=== PATIENT | female | born 1965 | race African-American/Black ===

== ENCOUNTER 2019-07-17 08:17 | Inpatient (IN) ==
--- NOTE | 2019-07-14 09:43 | EKG Report ---
Test Performed on : 07/14/2019 08:27:35 AM Test Reason : pat Blood Pressure : / mmHG Vent. Rate : 079 BPM Atrial Rate : 079 BPM P-R Int : 184 ms QRS Dur : 072 ms QT Int : 382 ms P-R-T Axes : 070 011 012 degrees QTc Int : 438 ms Normal sinus rhythm. Low voltage QRS Borderline ECG When compared with ECG of 03-JUL-2018 15:24, QRS voltage has decreased Unconfirmed Result
[2019-07-17] MEDS ORDERED: REGLAN ONE (08:33)
[2019-07-17] MEDS ORDERED: LR 1,000 ML ONE (08:33)
[2019-07-17] MEDS ORDERED: PEPCID ONE (08:33)
[2019-07-17] MEDS ORDERED: KEFZOL 1 GM/D5W 2 GM/100 ML IVPB ONE (08:33)
[2019-07-17] MEDS ORDERED: XYLOCAINE-MPF 2% ONE (08:48)
[2019-07-17] MEDS ORDERED: ZOFRAN ONE (08:48)
[2019-07-17] MEDS ORDERED: ROBINUL ONE (08:48)
[2019-07-17] MEDS ORDERED: DECADRON ONE (08:48)
[2019-07-17] MEDS ORDERED: DIPRIVAN 1% ONE (08:49)
[2019-07-17] MEDS ORDERED: FENTANYL ONE (09:14)
[2019-07-17] MEDS: ZOSYN 3.375 GM in NS 50 ML IV ONE ×2 (10:30→12:42)
[2019-07-17] MEDS ORDERED: ZOFRAN IV PRN (11:00)
[2019-07-17] MEDS ORDERED: LABETALOL IV PRN (11:00)
[2019-07-17] MEDS ORDERED: VANCOMYCIN IV PER PHARMACY MISC SCH (11:00)
[2019-07-17] MEDS ORDERED: DITROPAN PO PRN (11:00)
[2019-07-17] MEDS ORDERED: NORCO-7.5 PO PRN (11:00)
--- NOTE | 2019-07-17 11:00 | Diag Imaging Result Doc PS360 ---
EXAM: RETROGRADES 2 OR 3 FILMS 07/17/2019 HISTORY: BILAT RETROGRADE, BILAT STENT PLACEMENT, RT STENT REMOVAL TECHNIQUE: 34 images, 14.3 mGy, 38 seconds fluoroscopy time. COMMENT: There is a right ureteral stent. This was removed. Contrast was injected demonstrating a somewhat inhomogeneous renal pelvis and infundibula with distended upper pole calyces. The stent was removed placed with a stent with its upper portion in the lower pole infundibulum. Subsequently a catheter was placed in the distal left ureter and contrast was injected demonstrating some caliectasis in the lower pole more so than in the upper pole. A stent was subsequently placed on the left. IMPRESSION: Obstructive changes in the right renal collecting system. Right ureteral stent replaced. Placement of left ureteral stent by Dr. Reyes. Electronically signed by Hansel Posada 07/17/2019 10:58 AM
[2019-07-17] MEDS ORDERED: D5 1/2 NS 1,000 ML ONE (11:02)
[2019-07-17] MEDS: D5 1/2 NS 1,000 ML IV SCH (12:42)
[2019-07-17] MEDS ORDERED: VANCOMYCIN 1,700 MG in NS 250 ML IV ONE (14:00)
--- NOTE | 2019-07-17 17:01 | HISTORY AND PHYSICAL ---
PRIMARY CARE PROVIDER: Dr. Kali Foster. ONCOLOGIST: Dr. Marily Allen. UROLOGIST: Dr. Vladimir Reyes. CHIEF COMPLAINT: Admission for stent removal on bilateral stent replacement. HISTORY OF PRESENT ILLNESS: Ms Sanz is a 53-year-old female with a past medical history of cervical cancer, currently undergoing immunotherapy treatment with Dr. Marily Allen, hypertension, depression, anxiety, urethral stent placed back 15 months ago and had it replaced today by Dr. Reyes, for which the hospitalist was called for admission. There was a large amount of pus. 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 She will continue on IV antibiotics, IV fluids, pain regimen. Her old stent was replaced as well as bilateral stenting. PAST MEDICAL HISTORY: 1. Cervical cancer, undergoing treatment with immunotherapy with Dr. Marily Allen. 2. Hypertension. 3. Anxiety and depression. 4. Chronic kidney disease. 5. Iron deficiency anemia. 6. Tobacco dependence. 7. Vaginal bladder fistula. PAST SURGICAL HISTORY: 1. Status post right urethral stent with replacement. 2. Placement of a left urethral stent. 3. Right Port-A-Cath placement. SOCIAL HISTORY: Current smoker. She wears glasses. Family members at bedside. No alcohol or illicit drug use. FAMILY HISTORY: Of heart disease. There is cancer. PHYSICAL EXAMINATION: VITAL SIGNS: Temperature is 97.6 degrees, heart rate 58, respirations 16, blood pressure 144/58, O2 is 100% on room air. GENERAL: Patient is a 53-year-old female who is lying in the bed in no acute distress. Family member at bedside. HEENT: Atraumatic, normocephalic. PERRLA. NECK: Supple, trachea midline. CARDIOVASCULAR: S1, S2 appreciated. No murmurs, gallops, rubs noted. RESPIRATORY: Lung sounds clear bilaterally. GASTROINTESTINAL: Soft, nontender nondistended. Quiet bowel sounds 4 quadrants. EXTREMITIES: Lower extremities negative for edema. SKIN: Appears to be warm, dry, and intact. NEUROLOGIC: No focal deficits noted. LABORATORY DATA: No current laboratory data. DIAGNOSTIC DATA: Retrograde pyelogram shows obstructive changes in the right renal collecting system, right urethral stent replaced, placement of left urethral stent. EKG normal sinus rhythm at 79 beats per minute. ASSESSMENT AND PLAN: 1. Status post bilateral stent placement secondary to obstructive changes in the right renal collecting system. Copious amounts of pus found per Dr. Reyes's report. She will continue on IV antibiotics, IV fluids. Recheck her laboratory data in the a.m. Continue with pain regimen. The vaginal fistula known. 2. Cervical cancer. We will do a courtesy consult for Dr. Marily Allen. Patient is still undergoing immunotherapy treatment. 3. Hypertension. We will continue her home medications. 4. Anxiety and depression. Continue home medications. 5. Further recommendations to follow physician evaluation, laboratory and diagnostic data. Dictated by EDIS Kolb for Jose Manuel Peterson MD Addendum: Patient seen and examined by myself. Agree with FUSE MAKER note. It reflects my assessment and plan. Patient is being admitted to hospital for stent place removal. Patient has cervical cancer. We were consulted for medical management. Will start broad spectrum antibiotics and check CBC daily. cc: MD Vladimir Alex MD Heather Shah, MD Kenneth E. Mashburn, MD MTDD
--- NOTE | 2019-07-17 17:48 | OPERATIVE NOTE ---
PROCEDURE DATE: 07/17/2019 PREOPERATIVE DIAGNOSES: 1. Metastatic cervical cancer. 2. Right hydronephrosis. 3. Vesicovaginal fistula. POSTOPERATIVE DIAGNOSES: 1. Metastatic cervical cancer. 2. Right hydronephrosis. 3. Vesicovaginal fistula. 4. Obstructed right uropathy. PROCEDURE PERFORMED: 1. Cystoscopy. 2. Bilateral retrograde pyelograms. 3. Bilateral ureteral stent placement. 4. Cystolitholapaxy <2 cm. SURGEON: Vladimir Reyes MD PLANER CHAIN OFFBEARER: None. COMPLICATIONS: None. BLOOD LOSS: Minimal. DRAINS: 1. Right 8 x 22 cm ureteral stent. 2. Left 6 x 22 left ureteral stent. SPECIMENS REMOVED: 1. Right ureteral stent. 2. Urine culture. 3. Bladder stones. ANESTHESIA: LMA. INDICATION FOR PROCEDURE: Ms. Sanz is a 53-year-old, who was diagnosed with cervical cancer approximately 15 months ago. The patient had indwelling ureteral stent placed by doctors in [place] on the right side and underwent a left percutaneous nephrostolithotomy. The left-sided nephrostomy tube was then removed, but patient has kept her indwelling right ureteral stent which has not been exchanged since April 2018. She underwent chemotherapy and radiation and has subsequently developed a vesicovaginal fistula. The patient presented to the Urology office due to obstruction with right hydronephrosis. The patient denied any fevers, chills, hematuria, or dysuria. The patient was examined and had palpable vesicovaginal fistula. An x-ray showed the stent was in good position with coil within the right kidney as well as coil within the bladder. She had recent CT scan that showed worsening lymphadenopathy and is being seen both by Dr. Allen and at [facility]. I talked with the patient, and I recommended exchange of her right ureteral stent due to worsening lymphadenopathy, as well as a left retrograde pyelogram to assess for obstruction. Risks, benefits, and alternatives of procedure were discussed with the patient, and the patient elected to proceed. DESCRIPTION OF PROCEDURE: After informed consent was obtained, the patient was brought to the operating room and placed on the operating table in supine position. The patient received Ancef for preoperative antibiotics and underwent LMA placement. Preoperative time-out was then performed, with all parties in agreement, including Anesthesia, Surgical, and Nursing staff. At which point I inserted a 21-Kazakh cystourethroscope through the urethra. The patient had a narrow urethra, but was accommodating to the scope and was able to advance all the way into the bladder. Once in the bladder, the stent was seen extruding from the right ureteral orifice. A large amount of calcification was seen on the coil of the stent, as well as ingrowth of tissue. A large vesicovaginal fistula was seen, which rapidly drained the bladder when irrigation was turned off. 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 The left ureteral orifice was very difficult to visualize in the base of the bladder and actually was in the vagina itself within the vesicovaginal fistula. A ZIPwire was then passed through the scope and into the right ureteral orifice and went all the way up into the kidney. This was left in place and the cystourethroscope was removed and then reinserted with the rigid grasper which was used to grasp the right ureteral stent and broke all of the calcified stone off of the stent, and I was able to grasp the stent and completely remove it. This removed easily with no large stone debris seen on the proximal coil. Once this was removed, retrograde pyelogram was then performed in the right ureteral orifice, which outlined a hydronephrotic system with blown-out calices. Wire was left in place and then backloaded the cystourethroscope and a 8 x 22 cm right ureteral stent was advanced with a large amount of purulence that returned. This drained for almost 5 minutes of straight purulent material which was obtained and sent for a urine culture. Once this was performed, an open-ended catheter was then advanced into the left ureteral orifice and a wire was advanced, which actually allowed the ureteral orifice to be pulled up into the bladder itself. I advanced the open-ended catheter into the distal ureter and a retrograde pyelogram was performed, which showed no evidence of hydronephrosis. The decision was made to place a left ureteral stent just due to the location of the ureter in the base of the bladder and a concern regarding continued incontinence. I was able to obtain a 6 x 22 stent and advance it over the ZIPwire up into the collecting system with good coil in the kidney and endoscopically visualized in the bladder. The patient's bladder was drained completely; however, no significant sediment was seen from the left side, and the right side stopped draining its purulent output. All of the stone debris was retrieved from the bladder and sent as a bladder stone specimen. The patient's bladder was left decompressed. She was awoken and was taken to Recovery in stable condition. PLAN: The patient will be admitted overnight to the hospitalist service for IV antibiotics and will follow up results of her urine culture. cc: MD Jose Manuel Casarez MD MTDD
[2019-07-17] MEDS: ZOSYN 3.375 GM in NS 50 ML IV SCH ×2 (18:42→23:26)
[2019-07-17] MEDS: NEURONTIN PO SCH (20:58)
[2019-07-17] MEDS: COLACE PO SCH (20:58)
[2019-07-17] MEDS: CATAPRES PO SCH (20:58)
[2019-07-17] MEDS: PERIDEX MT SCH (20:58)
[2019-07-17] MEDS ORDERED: AMBIEN PO SCH (21:00)
[2019-07-18] MEDS: D5 1/2 NS 1,000 ML IV SCH (02:03)
[2019-07-18] MEDS: ZOSYN 3.375 GM in NS 50 ML IV SCH ×2 (04:29→11:51)
[2019-07-18 06:46] LABS: HEMATOCRIT 30.5 % (37.0-47.0); HEMOGLOBIN 9.4 g/dL (12.0-16.0); MCH 26.7 PG (27-31); MCHC 30.8 g/dL (33-37); MCV 86.6 FL (81-99); MPV 10.3 FL (7.4-10.4); RBC 3.52 XMIL (4.2-5.4); RDW 17.5 % (11.5-14.5); WBC 8.8 X1000 (4.8-10.8)
[2019-07-18 07:17] LABS: CALCIUM 9.8 mg/dL (8.8-10.2); CREATININE 1.9 mg/dL (0.5-0.9); POTASSIUM 4.4 mmol/L (3.5-5.1)
[2019-07-18] MEDS ORDERED: ISOPTIN SR PO SCH (09:00)
[2019-07-18] MEDS ORDERED: XANAX PO SCH (09:00)
[2019-07-18] MEDS ORDERED: VITAMIN B-12 PO SCH (09:00)
[2019-07-18] MEDS ORDERED: FERROUS SULFATE PO SCH (09:00)
[2019-07-18] MEDS ORDERED: PAXIL PO SCH (09:00)
[2019-07-18] MEDS ORDERED: XARELTO PO SCH ×2 (09:00→10:00)
[2019-07-18] MEDS: NEURONTIN PO SCH (09:44)
[2019-07-18] MEDS: CATAPRES PO SCH (09:45)
[2019-07-18] MEDS: COLACE PO SCH (09:46)
[2019-07-18] MEDS: PERIDEX MT SCH (09:48)
[2019-07-18 13:46] VITALS: BP 150/62
--- NOTE | 2019-07-18 14:17 | PROGRESS NOTE ---
DATE: 07/18/2019 SUBJECTIVE: Patient reports feeling fine. No abdominal pain. No nausea or vomiting. OBJECTIVE: Vital Signs: Temperature 97.7, heart rate 60, respiratory rate 20, blood pressure 151/76, O2 saturation 98% on room air. General: This is a chronically ill-appearing, 53-year- old, -English female, lying in bed in no acute distress. Cardiovascular: S1, S2 heard. No murmurs, gallops, or rubs. Regular rate and rhythm. Respiratory: Clear bilaterally to auscultation. No work of breathing or using accessory muscles. Abdomen: Soft, nontender to palpation. Bowel sounds present. No organomegaly. Extremities: No clubbing, cyanosis, or edema. Peripheral pulses present in both legs. Neurological: Patient alert and oriented x3. Moves 4 extremities. LABORATORY DATA: Reviewed. ASSESSMENT: 1. Status post bilateral stent placement secondary to obstructive changes in the right renal collecting system. 2. Cervical cancer. 3. Hypertension. 4. Anxiety and depression. PLAN: At this point, patient is stable. I have talked with Dr. Reyes and he is planning to send this patient home with oral antibiotics. The patient is going to be seen by Dr. Marily Allen in the office for followup with the cervical cancer. At this point, we are going to sign off. We do not need to make any changes to her current medications regarding hypertension, anxiety, and depression. We appreciate the opportunity to participate in the care of this patient. cc: Jose Manuel Peterson MD
[2019-07-19] MEDS ORDERED: VANCOMYCIN 1,500 MG in NS 250 ML IV SCH (14:00)
--- NOTE | 2019-07-19 17:14 | HEMO/ONC CONSULTATION ---
DATE: 07/18/2019 REQUESTING PHYSICIAN: Patient seen initial consultation at request of Dr. Reyes. REASON FOR CONSULTATION: Cervical cancer. HPI: Ms Laura Sanz is an unfortunate 53-year-old woman who is well known to be in clinic for her history of recurrent cervical cancer. She has most recently been on Keytruda immunotherapy for her recurrent relapsed cervical cancer. She is tolerating treatment well and had recent scans unfortunately on July 03 that showed progression of disease in the retroperitoneum. In the interim, she was seeing Dr. Reyes for stent exchanges. She had not had any exchange of her stent in over a year. She underwent stent exchange on the day of admission with significant amount of purulent fluid removed at the time of this stent exchange and there appeared to be some blockage of the stent. She has been hospitalized overnight for antibiotics and monitoring. She has been afebrile during her hospitalization. PAST MEDICAL HISTORY: Significant for recurrent cervical cancer, hypertension, hyperlipidemia. PAST SURGICAL HISTORY: Is notable for ankle fracture repair 2004, tubal ligation 1991, hysterectomy at diagnosis. ALLERGIES: None. FAMILY MEDICAL HISTORY: Dad had prostate cancer, heart disease. Mom had heart disease. Two sisters with diabetes, heart disease, hypertension. Children are 38 and 29 and healthy. A maternal uncle had prostate cancer. Paternal aunt had lymphoma. SOCIAL HISTORY: Patient quit smoking but previously smoked 4 cigarettes a day for 20 years. No alcohol or illicit drug use. GYNECOLOGIC HISTORY: 2, para 2, status post hysterectomy 2016. ECOG performance status is a 1. Pain score is a 2. Continue current management. PHYSICAL EXAM: General: This is chronically ill-appearing, overweight woman in no acute distress. She is unaccompanied in the hospital room during consultation today. Vital signs: Temperature 97.7 degrees, pulse 60, respiratory rate 20, blood pressure 151/76, O2 saturation 98% on room air. Eyes: Sclerae anicteric. Conjunctiva pale. Cardiovascular: Regular rate and rhythm. Normal S1, S2. No murmurs, rubs, or gallops. Pulmonary: Lungs clear to auscultation bilaterally without wheezes, rales or rhonchi. GI: Abdomen soft, nontender, nondistended with normoactive bowel sounds. Peripheral IV is in place. Extremities: Trace bilateral pretibial edema. Neuro: Is alert and oriented x3. Gait not assessed as patient is in a hospital bed at the time of consultation. LABS: White count 8.8, hemoglobin 9.4, platelet count 438,000, creatinine 1.9. Microbiology. Cultures are pending. ASSESSMENT AND PLAN: 1. Cervical cancer: She is on palliative therapy with Keytruda, is on the wait list for clinical trial at [facility]. She has had what appears to be progression of disease with retroperitoneal adenopathy on her recent PET scan which was discussed with the patient today. She will be taken off of Keytruda and we will discuss alternative therapy options at her return visit. I will touch base with [facility] to determine her candidacy for clinical trial as well. 2. Hydronephrosis: Likely related to blocked ureteral stent versus retroperitoneal adenopathy. Status post stent exchange. We will recheck her kidney function at her lab check early next week. She will continue with adequate oral hydration. Continue to monitor. 3. Anemia: Multifactorial. Partially treatment induced. We will monitor and replete her vitamin deficiencies as indicated. Consider growth factor for treatment induced anemia pending her transition to alternative systemic treatment. cc: MD Jose Manuel Casarez MD Dr. Kirby
== END 2019-07-18 13:55 | disposition home health service (06) | DRG 660 ==
LOC: 4N 08:17 → PAT 08:17 → OPS 08:17 → OBSVTOIN 09:42 → 4N 11:05
PROVIDERS: ADMIT Internal Medicine; ATTEND Urology

== ENCOUNTER 2019-08-23 21:30 | Inpatient (IN) ==
--- NOTE | 2019-08-23 21:57 | Diag Imaging Result Doc PS360 ---
EXAM: CHEST-1 VIEW HISTORY: possible sepsis TECHNIQUE: Single view COMPARISON: 10/04/2018 FINDINGS: The lungs are well expanded. The heart is not enlarged. There is a right jugular portacatheter. The vessels are not distended. Small infiltrates in the left base. Small left effusion. IMPRESSION: Small left basilar infiltrate Electronically signed by Reynold Carpenter 08/23/2019 9:55 PM
[2019-08-23] MEDS ORDERED: NS 1,000 ML IV ONE (22:19)
[2019-08-23] MEDS ORDERED: VANCOMYCIN 750 MG in NS 150 ML IV ONE (22:20)
[2019-08-23] MEDS ORDERED: ZOSYN 4.5 GM in NS 100 ML IV ONE (22:20)
[2019-08-23 23:07] LABS: BASO# 0.02 X1000 (0.0-0.2); BASO% 0.1 % (0.0-0.8); HEMATOCRIT 22.2 % (37.0-47.0); HEMOGLOBIN 6.9 g/dL (12.0-16.0); IMM GRAN# 0.21 X1000 (0.0-0.04); IMM GRAN% 1.1 % (0.0-0.5); LYMPH% 3.6 % (20.5-51.1); MCH 26.3 PG (27-31); MCHC 31.1 g/dL (33-37); MCV 84.7 FL (81-99); MONO# 1.17 X1000 (0.11-0.59); MONO% 6.1 % (1.7-9.3); MPV 10.5 FL (7.4-10.4); NEUT# 17.17 X1000 (1.4-6.5); NEUT% 89.1 % (42.2-75.2); PLT 406 X1000 (130-400); RBC 2.62 XMIL (4.2-5.4); RDW 17.7 % (11.5-14.5); WBC 19.27 X1000 (4.8-10.8)
[2019-08-23 23:09] LABS: INR 1.24; PROTIME 15.8 Seconds (11.0-16.0)
[2019-08-23 23:10] LABS: PTT 42.7 Seconds (22.3-41.8)
[2019-08-23 23:26] LABS: ALB/GLOB RATIO 0.8; ALBUMIN 3.1 g/dL (3.5-5.0); CALCIUM 11.8 mg/dL (8.8-10.2); CREATININE 2.7 mg/dL (0.5-0.9); POTASSIUM 4.1 mmol/L (3.5-5.1); TOTAL BILIRUBIN 0.37 mg/dL (0.20-1.00)
[2019-08-23 23:48] LABS: CK INDEX 0.3 (0.0-2.5); CK-MB 1.19 ng/mL (0.0-5.0)
--- NOTE | 2019-08-23 23:50 | PROVIDER DOCUMENTATION ---
This chart was entered by Arlyn Jamil Scribe, acting as scribe for Tyler Conner MD. HPI-General Adult - General Chief Complaint: SEPSIS ALERT - D Stated Complaint: possible uti/ altered Time Seen by Provider: 08/23/19 21:40 Source: patient, family, EMS Allergies/Adverse Reactions: Patient Allergies Allergy/AdvReac Type Severity Reaction Status Date / Time No Known Allergies Allergy Verified 02/15/15 13:51 Home Medications: Home Medication List Medication Instructions Recorded Confirmed Last Taken Type Clonidine [Catapres] 1 tab PO BID 02/15/15 07/17/19 07/17/19 06:00 History Verapamil HCl [Verapamil ER] 1 tab PO DAILY 02/15/15 07/17/19 07/17/19 06:00 History Zolpidem [Ambien] 10 mg PO QHS 06/17/18 07/17/19 07/16/19 21:00 History Alprazolam 0.5 mg PO DAILY 08/13/18 07/17/19 07/17/19 06:00 History Gabapentin 600 mg PO BID 08/13/18 07/17/19 07/16/19 20:00 History Paroxetine [Paxil] 10 mg PO DAILY 08/13/18 07/17/19 07/16/19 08:00 History Cyanocobalamin (Vitamin B-12) 1,000 mcg PO DAILY 07/14/19 07/17/19 07/16/19 08:00 History [Vitamin B-12] Ferrous Sulfate [Iron] 325 mg PO DAILY 07/14/19 07/17/19 07/16/19 08:00 History Rivaroxaban [Xarelto] 15 mg PO BID 07/14/19 07/17/19 07/16/19 08:00 History CefUROXIME [Ceftin] 250 mg PO BID #14 tab 07/18/19 Unknown Rx Hydrocodone/Acetaminophen [[place] 1 ea PO Q6H PRN #10 tab 07/18/19 Unknown Rx 5-325 Tablet] - History of Present Illness -Gen Adult Nature of Presenting Problems: 53 y/o female presents to ED with increased AMS onset 2 days ago. Family of pt reports hx cervical cancer. Pt is currently on chemo and has a port. EMS states pt was febrile, tachycardia, and tachypneic en route to ED. Family of pt reports she has been lying in bed for the past 2 days. Pt is alert and oriented x 2. Location of Pain/Injury: reports: none Pain Radiation: reports: no radiation Quality of Pain: reports: none Severity: reports: moderate, severe Onset/Duration: reports: 2 days ago Timing: reports: still present Context/Activities at Onset: reports: none Modifying Factors: improves with: nothing Associated Symptoms: reports: other (AMS) Similar Symptoms Previously?: No Recently seen or treated by another doctor?: No Review of Systems - Adult - REVIEW OF SYSTEMS - ADULT ROS:: ROS per family Constitutional: reports: other (AMS). denies: chills, fever Eyes: reports: no symptoms reported Ears, Nose, Mouth & Throat: reports: no symptoms reported Cardiovascular: reports: no symptoms reported Respiratory: reports: no symptoms reported Gastrointestinal: reports: no symptoms reported Genitourinary: reports: no symptoms reported Musculoskeletal: reports: no symptoms reported Integumentary: reports: no symptoms reported Neurological: reports: no symptoms reported Psychiatric: reports: no symptoms reported Endocrine: reports: no symptoms reported Hematologic/Lymphatic: reports: no symptoms reported Allergic/Immunologic: reports: no symptoms reported All Other Systems: Reviewed and Negative Past History - Adult - PAST MEDICAL HISTORY-ADULT Review of Records: reports: Old Records Reviewed, Nursing Assessment Review, Medications Reviewed Major Childhood Illnesses: reports: denies history Cardiovascular: reports: HTN, hyperlipidemia Respiratory: reports: denies history Gastrointestinal: reports: denies history Obstetrical/Gynecological: reports: other (cervical cancer) Genitourinary: reports: other (kidney stent) Musculoskeletal: reports: neck/back injury, other (muscle spasms) Neurological: reports: denies history Psychiatric: reports: anxiety Endocrine/Immune: reports: denies history Other Conditions: reports: denies history - PRIOR SURGERIES/PROCEDURES Surgical/Procedure History: reports: other (port placement) - IMMUNIZATION STATUS Childhood Immunizations: See Nurse Assessment Flu Vaccine: See Nurse Assessment - FAMILY HISTORY Family History: reviewed, not pertinent - SOCIAL HISTORY Smoking: greater than 1 pack/day Provider spent 3-5 mins advising pt. on dangers of tobacco.: Discussed manners to quit use, and f/u contacts for add'l counseling. Substance Use: none/never Alcohol Use Frequency: never Living Situation: family Physical Exam-General - PHYSICAL EXAM-ADULT Initial Vital Signs Reviewed: Yes (febrile; tachycardic) - CONSTITUTIONAL General Appearance: alert, no apparent distress, other (smells strongly of urine; A&Ox2; altered) - EYES Eyes: PERRL/EOMI, pink conjunctivae - HEAD, EARS, NOSE, MOUTH & THROAT HENMT: normocephalic/atraumatic, moist mucous membranes, normal ENT inspection - NECK Neck: non-tender, full range of motion - RESPIRATORY Respiratory: chest non-tender, lungs clear, normal breath sounds - CARDIOVASCULAR Cardiovascular: tachycardia - GASTROINTESTINAL (ABDOMEN) Abdominal Exam: normal bowel sounds, non tender, soft - MUSCULOSKELETAL Back Exam: normal inspection, no CVA tenderness, no vertebral tenderness Extremity: normal range of motion, non-tender - SKIN Integumentary: normal color, warm/dry, decubitus (2 stage II ulcers to sacral region), other (port to R anterior upper chest) - NEUROLOGIC Neurologic: other (altered; A&Ox2) - PSYCHIATRIC Psych/Mental Status: other (altered; A&Ox2) Progress - PLAN OF CARE/RESULTS Progress/Plan/Lab Results: Orders Category Date Time Status Cardiac Monitoring DIRECTED Care 08/23/19 21:33 Active IV Insertion ORDERED Care 08/23/19 21:33 Active Notify MD of + Sepsis Screen NOW Care 08/23/19 21:33 Active Notify Physician As Ordered Care 08/23/19 21:33 Active CHEST-1 VIEW [RAD] Stat Exams 08/23/19 21:33 Ordered BLOOD CULTURE [BLDCUL] Stat Lab 08/23/19 21:33 Uncollected CBC WITH DIFF [HEME] Stat Lab 08/23/19 21:33 Uncollected CK PROFILE [SP CHEM] Stat Lab 08/23/19 21:33 Uncollected COMPREHENSIVE METABOLIC PANEL [CHEM] Stat Lab 08/23/19 21:33 Uncollected LACTATE, PLASMA [CHEM] Q3H Lab 08/23/19 21:45 Uncollected LACTATE, PLASMA [CHEM] Q3H Lab 08/24/19 00:45 Uncollected LACTATE, PLASMA [CHEM] Q3H Lab 08/24/19 03:45 Uncollected PROTIME WITH INR [COAG] Stat Lab 08/23/19 21:33 Uncollected PTT [COAG] Stat Lab 08/23/19 21:33 Uncollected TROPONIN T Stat Lab 08/23/19 21:33 Uncollected URINALYSIS W/POSS RFLX CULT [URINALYSIS] Stat Lab 08/23/19 21:33 Uncollected Oxygen Device Stat Oth 08/23/19 21:33 Active Patient with AMS, fever, tarchycardia, noted to have elevated wbc, pneumonia, Julio Cesar,. Nurse Neil was unable to obtain a urine for UA after catheterization and has nurse has started abx. Dr Munoz accepts admission but advised flu test Laboratory Tests 08/23/19 08/23/19 08/23/19 22:16 22:16 22:16 WBC 19.27 H RBC 2.62 L Hgb 6.9 L Hct 22.2 L MCV 84.7 MCH 26.3 L MCHC 31.1 L RDW Std Deviation 17.7 H Plt Count 406 H MPV 10.5 H Immature Gran % (Auto) 1.1 H Neut % (Auto) 89.1 H Lymph % (Auto) 3.6 L [place] % (Auto) 6.1 Eos % (Auto) 0.0 Baso % (Auto) 0.1 Immature Gran # (Auto) 0.21 H Neut # (Auto) 17.17 H Lymph # (Auto) 0.70 L [place] # (Auto) 1.17 H Eos # (Auto) 0.00 Baso # (Auto) 0.02 PT 15.8 INR 1.24 PTT (Actin FS) 42.7 H Sodium 140 Potassium 4.1 Chloride 102 Carbon Dioxide 22 L Anion Gap 16 BUN 41 H Creatinine 2.7 H Estimated GFR/1.73 m2 22 BUN/Creatinine Ratio 15 Glucose 123 H Calculated Osmolality 291 Calcium 11.8 H Total Bilirubin 0.37 AST 24 ALT 38 H Alkaline Phosphatase 166 H Creatine Kinase 418 H Creatine Kinase Index 0.3 CK-MB (CK-2) 1.19 Troponin T Total Protein 7.0 Albumin 3.1 L Globulin 3.9 Albumin/Globulin Ratio 0.8 Plasma Lactate 08/23/19 08/23/19 22:16 22:16 WBC RBC Hgb Hct MCV MCH MCHC RDW Std Deviation Plt Count MPV Immature Gran % (Auto) Neut % (Auto) Lymph % (Auto) Conway % (Auto) Eos % (Auto) Baso % (Auto) Immature Gran # (Auto) Neut # (Auto) Lymph # (Auto) [place] # (Auto) Eos # (Auto) Baso # (Auto) PT INR PTT (Actin FS) Sodium Potassium Chloride Carbon Dioxide Anion Gap BUN Creatinine Estimated GFR/1.73 m2 BUN/Creatinine Ratio Glucose Calculated Osmolality Calcium Total Bilirubin AST ALT Alkaline Phosphatase Creatine Kinase Creatine Kinase Index CK-MB (CK-2) Troponin T 0.036 Total Protein Albumin Globulin Albumin/Globulin Ratio Plasma Lactate 2.3 H Result Diagrams: 08/23/19 22:16 08/23/19 22:16 - XRAY 1 XRAY Study: Chest Impression: See EMR Report ([facility] - [address], [address], [place] [address] [facility] - [address] [place] [address] Department of Imaging Patient: RIGOBERTO FRANCO Date: 08/23/19MR#: [id number] : 1965ADM Status: PRE ERAcct#: [id number] Age/Sex: 53/FRoom/Bed: Loc: ED Ordering Physician: Tyler Conner MD Family Physician: Reason for Procedure: possible sepsis ___ Signed EXAM: CHEST-1 VIEW HISTORY: possible sepsis TECHNIQUE: Single view COMPARISON: 10/04/2018 FINDINGS: The lungs are well expanded. The heart is not enlarged. There is a right jugular portacatheter. The vessels are not distended. Small infiltrates in the left base. Small left effusion. IM PRESSION: Small left basilar infiltrate Electronically signed by Reynold Carpenter 08/23/2019 9:55 PM 08/23/192154 Interpreting Physician: Reynold Carpenter MD Dictated Date/Time: 08/23/192153 cc: Tyler Conner MD;) - CT/MRI 1 CT Study: Head (no ct evidence of acute intracranial abnormality) Impression: See EMR Report - CONSULTS/PCP/HOSPITALIST Notification #1 *Consult/PCP/Hospitalist*: Dr. Munoz Time Discussed: 23:42 Reason/Comments: Pneumonia, JULIO CESAR, AMS Consult Disposition: Admit (accepts admission) Departure - Departure Date of Disposition Decision: 08/23/19 Time of Disposition Decision: 23:43 DIAGNOSIS: JULIO CESAR (acute kidney injury), Tobacco use Pneumonia Qualifiers: Pneumonia type: due to unspecified organism Laterality: left Lung location: low er lobe of lung Qualified Code(s): J18.1 - Lobar pneumonia, unspecified organism Altered mental status Qualifiers: Altered mental status type: unspecified Qualified Code(s): R41.82 - Altered mental status, unspecified Disposition: ADMITTED INPATIENT 09 Certified Medical Emergency: Emergent Condition: Stable Referrals and Follow-Ups: Kali Foster MD [Primary Care Provider] - Discharge Education: Steps to Quit Smoking, [id number] - Critical Care Note This patient required my direct & personal management of CC.: No Attestation - Physician/ GEORGE Attestation Patient care was provided by Advanced Practice Provider:: No The physician spent face to face time with patient:: Yes Advanced Practice Provider documentation review:: Supervising physician onsite and consulted in the evaluation and care of this patient. The physician did have a face to face encounter with the patient. This chart was documented by the indicated scribe, (Arlyn Jamil, Scribe) and accurately reflects the services I performed and decisions made by me, Tyler Conner MD, as attested by the provider's signature.
[2019-08-24 00:13] LABS: ANISOCYTOSIS 1+; BASO 1 % (0-1); HYPOCHROM 1+; LARGE PLATELETS 1+; LYMPHS 5 % (21-51); MONO 3 % (1-9); NRBC 1 % (0-0); SEGS 91 % (42-75)
[2019-08-24] MEDS ORDERED: ZOFRAN IV PRN (01:06)
[2019-08-24] MEDS ORDERED: TYLENOL PO PRN (01:06)
[2019-08-24] MEDS: NS 1,000 ML IV SCH ×4 (03:15→21:27)
[2019-08-24 03:30] LABS: CK INDEX 0.4 (0.0-2.5); CK-MB 1.51 ng/mL (0.0-5.0)
[2019-08-24] MEDS: ZOSYN 2.25 GM in NS 50 ML IV SCH ×3 (05:46→17:09)
[2019-08-24 06:57] LABS: CALCIUM 11.2 mg/dL (8.8-10.2); CREATININE 2.5 mg/dL (0.5-0.9)
[2019-08-24] MEDS: CATAPRES PO SCH ×2 (08:05→20:02)
[2019-08-24 08:09] LABS: BASO# 0.02 X1000 (0.0-0.2); BASO% 0.2 % (0.0-0.8); HEMATOCRIT 20.9 % (37.0-47.0); HEMOGLOBIN 6.5 g/dL (12.0-16.0); IMM GRAN# 0.08 X1000 (0.0-0.04); IMM GRAN% 0.6 % (0.0-0.5); LYMPH# 0.71 X1000 (1.2-3.4); LYMPH% 5.7 % (20.5-51.1); MCHC 31.1 g/dL (33-37); MCV 86.7 FL (81-99); MONO# 0.87 X1000 (0.11-0.59); MONO% 6.9 % (1.7-9.3); MPV 10.4 FL (7.4-10.4); NEUT# 10.85 X1000 (1.4-6.5); NEUT% 86.6 % (42.2-75.2); PLT 353 X1000 (130-400); RBC 2.41 XMIL (4.2-5.4); RDW 18.3 % (11.5-14.5); WBC 12.53 X1000 (4.8-10.8)
--- NOTE | 2019-08-24 08:09 | HISTORY AND PHYSICAL ---
CHIEF COMPLAINT: Altered mental status. HISTORY OF PRESENT ILLNESS: Ms. Sanz is a 53-year-old female with a history of cervical cancer. She is currently undergoing immunotherapy with Dr. Marily Allen. She also has hypertension, depression, anxiety, urethral stents which I believe were recently removed back in 07/2019. 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 At any rate, tonight she returns with altered mental status. They feared that she has a urinary tract infection. Her urine is pending. However, a chest x-ray was obtained which showed small left basilar infiltrate. We will admit for community acquired pneumonia. PAST MEDICAL HISTORY: See HPI. PAST SURGICAL HISTORY: Status post right ureteral stent with replacement, placement of a left ureteral stent, Port-A-Cath placement. SOCIAL HISTORY: She smokes. No alcohol or illicit drug use. FAMILY HISTORY: No history of heart disease. There is a history of cancer in first degree relatives. ALLERGIES: No known drug allergies. HOME MEDICATIONS: Catapres 0.2 mg p.o. b.i.d., verapamil ER 240 mg p.o. daily, Ambien 10 mg p.o. nightly at bedtime, alprazolam 0.5 mg p.o. daily, Neurontin 600 mg p.o. b.i.d., Paxil 10 mg p.o. daily, ferrous sulfate 65 mg p.o. daily, Xarelto 15 mg p.o. as directed, vitamin B12 1000 mcg p.o. daily, Ceftin 250 mg p.o. b.i.d., [place] 5 one p.o. q.6 p.r.n., vitamin D2 50,000 units p.o. as directed. REVIEW OF SYSTEMS: A 14-point review of systems was gone over with the patient. She denies major complaints. She is only oriented to person and place, mostly just oriented to situation with overall confusion. Pertinent positives are listed above in the HPI. Other systems were attempted. PHYSICAL EXAMINATION: VITAL SIGNS: Temperature 100.1, pulse 65, respirations 22, blood pressure 126/67, oxygen saturation 100% on room air. GENERAL: A 53-year-old female lying on the ER stretcher. She is in no acute distress. Family members at bedside. HEENT: Head is atraumatic and normocephalic. Pupils are equal, round and reactive to light. Extraocular eye movements intact. Sclerae anicteric. Conjunctivae pale. Oral mucosa is mildly dry. NECK: Supple. No JVD. No thyromegaly. Trachea is midline. No cervical lymphadenopathy. CARDIAC: S1 and S2 appreciated. She is tachycardic. No murmurs, gallops or rubs. LUNGS: No rhonchi, wheezes or rales. Symmetric rise and fall with respirations. ABDOMEN: Soft, nondistended and nontender. Bowel sounds present in all 4 quadrants, normoactive. No pulsatile masses. No organomegaly. EXTREMITIES: No cyanosis, clubbing or edema. There are 1+ pedal pulses bilaterally. GENITOURINARY: No bladder distention. The patient voids. Otherwise deferred. NEUROLOGICAL: Oriented to person and place. Disoriented to time and situation. Cranial nerves II through XII grossly intact. DIAGNOSTIC DATA: CT of the head shows no acute intracranial process. Chest x- ray shows a small left basilar infiltrate. Urinalysis is pending. WBC is 19.27, hemoglobin 6.9, hematocrit 22.2, platelet count 406. Sodium is 140, potassium 4.1, chloride 102, carbon dioxide 22, BUN is 41, creatinine 2.7, glucose 123. ASSESSMENT: 1. Healthcare acquired pneumonia. 2. Stage 2 sacral decubitus. 3. Questionable urinary tract infection. 4. Leukocytosis. 5. Anemia of chronic disease. 6. Cervical cancer, presently on immunotherapy treatment. 7. Acute kidney injury with chronic kidney disease stage 3. PLAN: Admit the patient to [facility]. Type and screen the patient. Recheck hemoglobin and hematocrit this morning. She is right at transfusion levels. We will not transfuse at this time. We will treat with Zyvox and Zosyn IV. Blood cultures and sputum cultures are pending as well as a urinalysis. We will continue her home medications and consult Dr. Marily Allen to let her know that she is in the hospital. We will continue on saline. Further recommendations per the patient's clinical course. Dictated by EDIS Perales for Anastacio Munoz MD I have performed a face to face diagnostic evaluation. Labs/ xrays -reviewed. Exam- Chest- rhonchi- CV- regular A/P- Pneumonia- Admit, check blood cultures, IV ABX. Dr. Alexander Louis#: [id number] cc: EDIS Perales MD [facility]
[2019-08-24] MEDS ORDERED: ISOPTIN SR PO SCH (09:00)
--- NOTE | 2019-08-24 09:08 | Diag Imaging Result Doc PS360 ---
EXAM: CT HEAD W/O CONTRAST INDICATION: altered mental status TECHNIQUE: This exam was performed using automated exposure control, adjustment of mA or kV according to patient size, and/or use of iterative reconstruction technique. COMPARISON: None. FINDINGS: There is mild patchy low attenuation in the periventricular and subcortical white matter suggesting mild microangiopathy. There is no definite acute infarct given the limited sensitivity of CT versus MRI. There is no discrete intracranial mass, mass effect, or intracranial hemorrhage. The surrounding soft tissues and bony structures are essentially unremarkable. IMPRESSION: Suggestion of mild white matter microangiopathy. No definite acute intracranial pathology by CT. Electronically signed by Tenzin Francois 08/24/2019 9:05 AM
[2019-08-24] MEDS: ZYVOX 600 MG/D5W 600 MG/300 ML IVPB IV SCH ×2 (09:42→20:03)
[2019-08-24] MEDS: VITAMIN B-12 PO SCH (09:43)
[2019-08-24] MEDS: PAXIL PO SCH (09:43)
[2019-08-24] MEDS: NEURONTIN PO SCH ×2 (09:43→20:03)
[2019-08-24] MEDS: XANAX PO SCH (09:44)
[2019-08-24] MEDS: XARELTO PO SCH (09:44)
[2019-08-24] MEDS: FERROUS SULFATE PO SCH (09:44)
[2019-08-24 10:32] LABS: BANDS 10 % (0-1); LYMPHS 6 % (21-51); SEGS 84 % (42-75)
[2019-08-24] MEDS: NICODERM PATCH TD SCH (13:27)
[2019-08-24 16:04] LABS: URINE SOURCE CATH
[2019-08-24 16:10] LABS: BILIRUBIN URINE NEGATIVE (NEGATIVE); BLOOD URINE LARGE (NEGATIVE); COLOR ORANGE; GLUCOSE URINE NEGATIVE (NEGATIVE); KETONE URINE NEGATIVE (NEGATIVE); LEUKOCYTES URINE LARGE (NEGATIVE); NITRITE URINE NEGATIVE (NEGATIVE); PROTEIN URINE 200 mg/dL (NEGATIVE); SP GRAVITY URINE 1.016; TURBIDITY URINE TURBID (CLEAR); UROBILINOGEN URINE NORMAL (NORMAL)
[2019-08-24 16:20] LABS: UR AMPHETAMINES QUAL NONE DETECTED (NONE DETECT); UR BARBITUATES QUAL NONE DETECTED (NONE DETECT); UR BENZODIAZEPIN QUAL PRESUMPTIVE POSITIVE (NONE DETECT); UR CANNABINOIDS QUAL NONE DETECTED (NONE DETECT); UR COCAINE QUAL NONE DETECTED (NONE DETECT); UR METHADONE QUAL NONE DETECTED (NONE DETECT); UR OPIATES QUAL NONE DETECTED (NONE DETECT); UR OXYCODONE QUAL NONE DETECTED (NONE DETECT); UR PCP QUAL NONE DETECTED (NONE DETECT)
[2019-08-24 16:22] LABS: URINE RBC >40 /HPF (<10); URINE WBC TNTC /HPF (<10)
[2019-08-24 16:23] LABS: UR EPITHELIAL CELLS <10 /HPF (<10)
[2019-08-24 16:29] LABS: URINE BACTERIA 1+ /HPF
--- NOTE | 2019-08-24 16:30 | PROGRESS NOTE ---
DATE: 08/24/2019 HISTORY: Ms Laura Sanz is a patient of Dr. Kali Foster. She was admitted early this morning, a 53-year-old black female with history of cervical cancer, currently undergoing immunotherapy per Dr. Marily Allen. Also has a history of hypertension, depression, anxiety, urethral stents, which I believe recently were removed back on 07/23/2019. She has had a vaginal bladder fistula which has drained heavy amounts of purulent drainage, was on IV antibiotics. She returns with altered mental status. She had a urinary tract infection. Urine cultures were obtained. Chest x-ray obtained showed a small left basilar infiltrate. PAST MEDICAL HISTORY: Status post ureteral stent with replacement and placement of left ureteral stent, Port-A-Cath placement. EXAM: General: Today she reports she feels better. No pain remains. Vital Signs: Her temperature maximum was 99.4 degrees, temperature this morning 97.8, pulse 84, respirations 17, blood pressure 119/74. Lungs: Lungs are clear in all lung [place]. Cardiovascular: Regular rhythm and rate without murmur or S3. Abdomen: Abdomen is soft. Skin: Skin is warm and dry. REVIEW OF LABS: Lab white count was 12,530, hematocrit is 20, hemoglobin 6.5, platelet count 353,000. Sodium 139, potassium 4.0, chloride 102, BUN 43, creatinine 2.5. Looking back at her creatinine I see it was 2.7 yesterday. She had a creatinine of 1.9 in 07/18/2019. It was 2.01 on 07/17/2019. IMAGING: Her head CT without contrast had a suggestion of mild white matter microangiopathy but no definite acute intracranial pathology. Her chest x-ray showed a small left basilar infiltrate. REVIEW OF ORDERS: She is on Xanax 0.5 mg a day, Catapres 0.2 mg b.i.d., vitamin D 50,000 units I think once a month, ferrous sulfate 325 mg a day, Neurontin 600 mg b.i.d., hydrocodone 5 mg one every six hours p.r.n., nicotine patch 21 mg daily, normal saline at 100 mL an hour, Paxil 10 mg daily, Xarelto 20 mg daily, verapamil SR 240 mg daily, Zosyn 2.25 grams IV every six hours, linezolid 600 mg IV every 12 hours. We had given her dose of vancomycin. I think that was because preliminary blood culture is still pending. ASSESSMENT AND PLAN: 1. Healthcare acquired pneumonia. 2. Stage II sacral decubitus. 3. Questionable urinary tract infection. 4. Leukocytosis. 5. Anemia of chronic disease. 6. Cervical cancer, presently on immunotherapy and treatment. 7. Acute kidney injury with chronic kidney disease stage 3. cc: Buddy Gomez MD
[2019-08-25] MEDS: ZOSYN 2.25 GM in NS 50 ML IV SCH ×4 (00:36→17:28)
[2019-08-25] MEDS: NS 1,000 ML IV SCH ×2 (06:24→17:29)
[2019-08-25 06:49] LABS: HEMATOCRIT 25.2 % (37.0-47.0); HEMOGLOBIN 7.9 g/dL (12.0-16.0)
[2019-08-25] MEDS ORDERED: VITAMIN D PO SCH (09:00)
[2019-08-25] MEDS ORDERED: CALMOSEPTINE OINTMENT TOP ONE (09:06)
[2019-08-25] MEDS: ZYVOX 600 MG/D5W 600 MG/300 ML IVPB IV SCH ×2 (09:52→21:06)
[2019-08-25] MEDS: XARELTO PO SCH (09:53)
[2019-08-25] MEDS: VITAMIN B-12 PO SCH (09:53)
[2019-08-25] MEDS: NEURONTIN PO SCH ×2 (09:53→21:06)
[2019-08-25] MEDS: XANAX PO SCH (09:53)
[2019-08-25] MEDS: FERROUS SULFATE PO SCH (09:53)
[2019-08-25] MEDS: NICODERM PATCH TD SCH (09:53)
[2019-08-25] MEDS: NORCO-5 PO PRN (09:53)
[2019-08-25] MEDS: CATAPRES PO SCH ×2 (09:54→21:06)
[2019-08-25] MEDS: PAXIL PO SCH (09:54)
--- NOTE | 2019-08-25 17:33 | PROGRESS NOTE ---
DATE: 08/25/2019 SUBJECTIVE: Ms. Snaz is feeling a little better. Breathing is a little more comfortable and she had an uneventful night. OBJECTIVE: Vital signs: Temperature 98.3 degrees, pulse 60, respirations 20, blood pressure 108/70. HEENT: Pupils are equal and round. Lungs: Clear in all lung o[place]. Cardiovascular: Regular rhythm and rate without murmur or S3. Abdomen: Soft. Skin: Warm and dry. ASSESSMENT AND PLAN: 1. Healthcare-acquired pneumonia. Continue present antibiotics and bronchodilators. She has a nicotine patch. She is on Zosyn 2.25 g IV q.6 and she is on linezolid 600 mg IV q.12. 2. Stage 2 sacral decubitus. Continue topical care. We will get her a different mattress. Wound care is helping. 3. Questionable urinary tract infection. Continue present antibiotics. 4. Leukocytosis. 5. Anemia of chronic disease. 6. Cervical cancer. She is presently on immunotherapy. 7. Acute kidney injury with underlying chronic kidney disease. White count has come down to 12,530, hematocrit is 20, hemoglobin was 6.5, so I gave her 1 unit of packed red blood cells. Hemoglobin 7.9 this morning. Her electrolytes sodium 139, potassium 4.0, chloride 102, bicarbonate 18, BUN 43, and creatinine 2.5 which is come down from 2.7. REVIEW OF ORDERS CONTINUE: She is getting Xanax 0.5 mg daily, Tylenol q.6 hours p.r.n., Catapres 0.2 mg b.i.d., vitamin B12 1000 mcg p.o. daily, vitamin D 46150 units I think once a month, ferrous sulfate 325 mg a day, Neurontin 600 mg b.i.d., nicotine patch 21 mg daily, normal saline at 100 mL an hour, Paxil 10 mg a day, Xarelto 20 mg a day, verapamil SR 240 mg a day, and then she gets her Zosyn and linezolid. cc: Buddy Gomez MD
--- NOTE | 2019-08-25 19:24 | HEMO/ONC CONSULTATION ---
DATE: 08/25/2019 REQUESTING PHYSICIAN: Hospitalist service. REASON FOR CONSULTATION: Metastatic cervical cancer, patient known. HISTORY OF PRESENT ILLNESS: Ms. Laura Sanz is a 53-year-old female, who is known to us as we are currently helping to treat her for metastatic cervical cancer. She is currently receiving Keytruda. Her last dose was on 08/13/2019. It appears that the patient presented to the emergency department yesterday with altered mental status. She has been found to have pneumonia with UTI and also decubitus ulcer. She is now in the hospital to receive further treatment. PAST MEDICAL HISTORY: 1. Recurrent metastatic cervical cancer. 2. Hypertension. 3. Hyperlipidemia. PAST SURGICAL HISTORY: Ankle fracture repair in 2004, tubal ligation in 1991, hysterectomy. FAMILY HISTORY: Positive for prostate cancer, heart disease, diabetes, hypertension and lymphoma. SOCIAL HISTORY: The patient denies any alcohol, tobacco or illicit drug use currently. She has a supportive family. PHYSICAL EXAMINATION: Vital Signs: Temperature 98.3 degrees, heart rate 71, respirations 27, blood pressure 94/58, O2 saturation 98% on room air. General: This is an female sitting in a chair in her hospital room. She is in no acute distress at this time. Head: Normocephalic, atraumatic. Eyes: Pupils equal, round, reactive. Ears, nose, throat, neck, mouth: Oral mucosa appears to be normal. Cardiovascular: S1, S2 heard. Respiratory: Coarse breath sounds noted. Normal respiratory effort. Gastrointestinal: Abdomen is soft. Musculoskeletal: No obvious bony abnormalities noted. Extremities: Shows trace bilateral lower extremity edema. Neurologic: Patient is alert and oriented. LABS AND STUDIES: White blood cells 12.53, hemoglobin 7.9, hematocrit 25.2, platelets 353,000. Sodium 139, potassium 4.0, chloride 102, CO2 19, BUN 43, creatinine 2.5, glucose 103. Chest x-ray done on 08/23/2019 shows a small left basilar infiltrate. ASSESSMENT AND PLAN: 1. Recurrent cervical cancer. Patient is receiving Keytruda. Her last dose was on 08/13/2019. Treatment is on hold while she is in the hospital. 2. Altered mental status. This is likely secondary to underlying infection. She is found to have a urinary tract infection and also pneumonia. Continue IV antibiotics per the primary team. 3. Pneumonia. It does appear that the patient has pneumonia on the chest x-ray. She is already improving per her report. Continue with the current IV antibiotics. This does not seem to be related to her immunotherapy as she is already improving without the use of steroids. 4. Urinary tract infection. Again, continue IV antibiotics per the primary team. 5. History of blood clot. Patient will need to continue on Xarelto 20 mg daily. We want to thank you for consulting us on Ms. Sanz. We will continue to follow along and adjust our treatment plan per her hospital course. Dictated by RENARD Levi for Nghia Del Rio MD cc: Nghia Del Rio MD
[2019-08-26] MEDS: ZOSYN 2.25 GM in NS 50 ML IV SCH ×4 (00:06→17:24)
[2019-08-26] MEDS: NS 1,000 ML IV SCH ×4 (03:58→20:08)
[2019-08-26] MEDS: FERROUS SULFATE PO SCH (08:15)
[2019-08-26] MEDS: ZYVOX 600 MG/D5W 600 MG/300 ML IVPB IV SCH ×2 (08:15→20:08)
[2019-08-26] MEDS: NEURONTIN PO SCH ×2 (08:15→20:09)
[2019-08-26] MEDS: ISOPTIN SR PO SCH (08:15)
[2019-08-26] MEDS: CATAPRES PO SCH ×2 (08:15→20:09)
[2019-08-26] MEDS: XARELTO PO SCH (08:15)
[2019-08-26] MEDS: NICODERM PATCH TD SCH (08:16)
[2019-08-26] MEDS: VITAMIN B-12 PO SCH (08:16)
[2019-08-26] MEDS: PAXIL PO SCH (08:16)
[2019-08-26] MEDS: XANAX PO SCH (08:16)
[2019-08-26] MEDS: NORCO-5 PO PRN (14:43)
--- NOTE | 2019-08-26 16:51 | PROGRESS NOTE ---
DATE: 08/26/2019 SUBJECTIVE: Today Ms. Sanz refers to be feeling a lot better. No new complaints. OBJECTIVE: Vital signs: Blood pressure is 107/57, pulse of 55, respirations 18, temperature is 98.0 degrees. General: Ms. Sanz is a 53-year-old, -[place] female. She is in bed, in no distress. HEENT: Mucosa is pink and moist. Anicteric. Acyanotic. Neck: Supple. Chest: Good air entry bilaterally. No crepitations. No rhonchi. Cardiovascular: Regular rate and rhythm. Abdomen: Soft, nontender. Bowel sounds present. Extremities: No pedal edema. MANAGER OF FINANCE: Patient is awake, alert, and oriented. : Banks catheter is in place. LABORATORY DATA: None for today. The patient is status post 1 PRBC transfusion. ASSESSMENT AND PLAN: 1. Altered mental status on presentation secondary to global encephalopathy. Etiology is multifactorial including metabolic, infectious and possible drug related. The patient's CAT scan of the head was unremarkable. Mentation and sensorium have improved. 2. Gram-negative kathia urinary tract infection. We are still pending the ID and sensitivity. 3. Left basilar infiltrate, questionable for pneumonia. Patient is on antimicrobial coverage. We will get a chest x-ray tomorrow morning. 4. History of metastatic cervical cancer, complicated with obstructive right uropathy with right hydronephrosis. Patient is status post bilateral ureteral stent placement by Dr. Reyes on 07/17/2019. 5. Acute on chronic renal failure. We will continue with the gentle hydration and repeat her labs for tomorrow morning. 6. Normocytic anemia. The patient is status post 1 PRBC transfusion. She has already been transfused so we will defer to her primary oncologist to check on her iron studies at a later date. cc: Aleksandr Roy MD
[2019-08-27] MEDS: ZOSYN 2.25 GM in NS 50 ML IV SCH ×2 (01:07→06:04)
[2019-08-27] MEDS: NS 1,000 ML IV SCH ×3 (02:40→21:07)
[2019-08-27 06:54] LABS: BASO# 0.01 X1000 (0.0-0.2); BASO% 0.1 % (0.0-0.8); EOS# 0.07 X1000 (0.0-0.7); EOS% 0.8 % (0.0-10.0); HEMATOCRIT 24.8 % (37.0-47.0); HEMOGLOBIN 7.6 g/dL (12.0-16.0); IMM GRAN% 1.1 % (0.0-0.5); LYMPH# 0.95 X1000 (1.2-3.4); LYMPH% 10.5 % (20.5-51.1); MCHC 30.6 g/dL (33-37); MCV 87.9 FL (81-99); MONO# 0.64 X1000 (0.11-0.59); MONO% 7.1 % (1.7-9.3); MPV 9.9 FL (7.4-10.4); NEUT# 7.29 X1000 (1.4-6.5); NEUT% 80.4 % (42.2-75.2); PLT 545 X1000 (130-400); RBC 2.82 XMIL (4.2-5.4); RDW 17.6 % (11.5-14.5); WBC 9.06 X1000 (4.8-10.8)
[2019-08-27 07:12] LABS: ALBUMIN 2.3 g/dL (3.5-5.0); CALCIUM 9.9 mg/dL (8.8-10.2); CREATININE 1.5 mg/dL (0.5-0.9); MAGNESIUM 1.9 mg/dL (1.5-2.7); PHOSPHORUS 3.5 mg/dL (2.7-4.5); POTASSIUM 4.1 mmol/L (3.5-5.1)
[2019-08-27] MEDS ORDERED: LEVAQUIN PO SCH (09:15)
[2019-08-27] MEDS: CATAPRES PO SCH ×2 (10:38→21:08)
[2019-08-27] MEDS: NICODERM PATCH TD SCH (10:45)
[2019-08-27] MEDS: NEURONTIN PO SCH ×2 (10:45→21:08)
[2019-08-27] MEDS: VITAMIN B-12 PO SCH (10:45)
[2019-08-27] MEDS: XARELTO PO SCH (10:45)
[2019-08-27] MEDS: PAXIL PO SCH (10:46)
[2019-08-27] MEDS: FERROUS SULFATE PO SCH (10:46)
[2019-08-27] MEDS: XANAX PO SCH (10:46)
[2019-08-27] MEDS: ISOPTIN SR PO SCH (10:48)
--- NOTE | 2019-08-27 12:05 | Diag Imaging Result Doc PS360 ---
CHEST-2 VIEWS - 08/27/2019 INDICATION: hypoxia COMPARISON: 08/23/2019 FINDINGS: Stable right chest port. Stable cardiomegaly. Stable mild strandy atelectasis or infiltrate in the left lung base. No new infiltrates. IMPRESSION: No change from prior. Electronically signed by Marko Tolliver 08/27/2019 12:03 PM
--- NOTE | 2019-08-27 12:22 | PROGRESS NOTE ---
DATE: 08/27/2019 SUBJECTIVE: This morning, Mr. Sanz refers to be doing fairly okay but she says she has been having multiple bowel movements which is watery content. OBJECTIVE: Vital signs: Blood pressure is 105/61, pulse of 77, respirations 17, temperature is 97.8 degrees. General: Ms. Sanz is a 53-year-old female. She is in bed, no distress. HEENT: Mucosa is pink and moist. Anicteric. Acyanotic. Neck: Supple. Chest: Good air entry bilaterally. No crepitations. No rhonchi. Cardiovascular: Regular rate and rhythm. No murmurs, no rubs, no gallops. Gastrointestinal: Abdomen is soft, nontender. Bowel sounds present. Extremities: No pedal edema. Distal pulses are present. Central nervous system: Patient is awake, alert, and oriented. There is no focal deficit. LABORATORY DATA: Urine output is 1400. Patient is currently positive balance of about 8000. MICROBIOLOGY DATA: Blood cultures have been 48 hours negative. The urine culture shows Pseudomonas aeruginosa. ASSESSMENT AND PLAN: 1. Altered mental status on presentation secondary to global encephalopathy. Initial CT scan was unremarkable. We think etiologies will include metabolic and infectious and possible drug side effects. The patient's mentation and sensorium has improved to baseline. 2. Pseudomonas aeruginosa urinary tract infection. Patient is on adequate antimicrobial coverage. 3. Left basilar infiltrate concerning for pneumonia. The patient is on antibiotics. Chest x-ray has been ordered for today. We are waiting for that to be done. 4. History of metastatic cervical cancer complicated with obstructive right uropathy with right hydronephrosis. Patient is status post bilateral stent placement by Dr. Reyes on 07/17/2019, noted. 5. Acute on chronic renal failure. Creatinine continues to be trending down. 6. Normocytic anemia on presentation with positive fecal occult blood test. The patient is status post 1 PRBC transfusion. Hemoglobin improved to 7.9, this morning is down to 7.6. There is concern for GI bleed so we will consult GI to evaluate Ms Sanz. 7. Xarelto anticoagulation. Ms Sanz refers that her right lower extremity was slightly swollen and was told that she did have some DVTs in it, so she is on Xarelto for DVT treatment. Unfortunately, her stool is positive and her hemoglobin had dropped down to 6.5. We think she is probably bleeding some from the GI tract. We withheld the therapeutic Xarelto, put her on prophylactic Lovenox and get GI to evaluate for possible scope before she can go back on full anticoagulation. 8. Diarrhea, possibly due to antibiotic side effects. However, we will sample it and determine if there is no infection course, more specifically C difficile. cc: Aleksandr Roy MD
[2019-08-27] MEDS: CENTRUM SILVER PO SCH (14:50)
[2019-08-27] MEDS: NORCO-5 PO PRN (14:52)
[2019-08-27] MEDS: ICAR-C PO SCH (21:07)
[2019-08-27] MEDS: CULTURELLE PO SCH (21:08)
[2019-08-27] MEDS: PROTONIX IV SCH (21:08)
[2019-08-27] MEDS: SODIUM CHLORIDE 0.9% INJ SCH (21:08)
--- NOTE | 2019-08-28 03:49 | GASTROENTEROLOGY CONSULTATION ---
DATE: 08/27/2019 PHYSICIAN: Dr. Roy. PRIMARY DOCTOR: Dr. Kali Foster. REASON FOR CONSULTATION: Anemia, positive Hemoccult. HISTORY OF PRESENT ILLNESS: Miss Sanz is a 53-year-old female who was admitted on 08/24/2019 for altered mental status. The patient has a known history of cervical cancer for the last 2 years. She has received radiation and undergoing chemotherapy by Dr. Marily Allen. The last chemotherapy was more than a month ago. The patient has complication in the form of hydronephrosis requiring right ureteral stent placement with replacement with the Urology team. She has been noticing some blood in the urine off and on for the last 2 years. She denies any nausea, vomiting, vomiting blood, or passing blood in the stools. She was noted to be anemic during the hospitalization. She received 1 unit of blood transfusion. Her Hemoccult was positive. She was on Xarelto for history of DVT many years ago. Her Xarelto was held 3 days ago. She is on Lovenox currently. According to the records, she has a possible vaginal bladder fistula and a UTI which could have contributed to her encephalopathy which is improved with antibiotics. Gastroenterology was consulted for worsening anemia and positive Hemoccult. The patient denies having any EGD or colonoscopy in the past. According to the patient, in the past she was told she had ulcers, but never had EGD, but that was many years ago. PAST MEDICAL HISTORY: Cervical cancer 2 years ago, currently undergoing chemotherapy, had finished radiation last year by Dr. Marily Allen. Hypertension. Depression. Anxiety ureteral stents. 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 UTI. PAST SURGICAL HISTORY: Right ureteral stent placement with placement of a left ureteral stent. Port-A-Cath placement. SOCIAL HISTORY: She smokes. No history of alcohol or illicit drug abuse. FAMILY HISTORY: No history of heart disease and no history of cancer in the first-degree relatives. ALLERGIES: No known drug allergies. MEDICATIONS IN THE HOSPITAL: Include Tylenol, Xanax, Catapres, vitamin B12, Lovenox, vitamin D, Neurontin, [place] 5, iron-C b.i.d., Culturelle b.i.d., Levaquin 250 mg IV q.24 hours, Centrum Silver once daily, NicoDerm patch, normal saline 100 mL/heart rate, Zofran 4 mg IV q. 4 hours, Protonix 40 mg p.o. b.i.d., Paxil 10 mg once daily, and verapamil 240 mg p.o. daily. DIET: The patient is currently on a regular diet. REVIEW OF SYSTEMS: Denies any current fevers, rigors, chills, chest pain, shortness of breath, dyspnea on exertion, vomiting, or passing blood. Denies any nosebleeds or gum bleeds. Does complain of blood in the urine. Denies any other neurologic complaints at the moment although she had encephalopathy which resolved. PHYSICAL EXAMINATION: vital signs: Temperature of 97.4 degrees, pulse of 67, respiratory rate of 17, blood pressure 125/66, saturating 100% on room air. Body weight of 182 pounds 2 ounces, BMI of 31.3 kg meter. General: Moderate built moderate nourished lying in bed in no acute distress. HEENT: Pale conjunctivae. No icterus. Pupils equal and reactive to the light. Neck: Supple. Abdomen: Soft. Mild discomfort in the suprapubic region. No rebound or guarding. Extremities: No cyanosis or clubbing. Neurologic: She is alert, awake, and oriented x3. LABORATORIES: Hemoglobin and hematocrit is 7.6 and 24.8, white count of 9.06, platelet count of 545,000. Sodium 140, potassium 4.1, chloride 100, bicarb 19, anion gap 13, BUN of 22, creatinine of 1, glucose of 83, calcium is 9.9, phosphorus 3.5, magnesium 1.9, albumin of 2.3. Her liver enzymes on admission: AST 24, ALT 38, alkaline phosphatase 160, total protein is 7, albumin of 3.1. Urinalysis showed positive protein, large blood, large leukocytes. Tox screen was positive for benzodiazepines. Her urine culture showed Pseudomonas aeruginosa which was pansensitive. Her flu screen was negative for A and B. Her blood culture were negative so far after 48 hours. In the stool for Hemoccult was positive x2. IMAGING: She had a head CT done on admission which showed suggestion of mild white matter microangiopathy. No acute pathology. Chest x-ray done showed no stable cardiomegaly, mild strandy atelectasis or infiltrate in the left lung base. No new infiltrate. Last imaging other than that in the past there is a renal ultrasound on 03/09/2019 which showed moderate right hydronephrosis and a stent in the upper pole of the right kidney. IMPRESSION AND PLAN: 1. Anemia. Hematuria 2. Positive Hemoccult. 3. History of deep venous thrombosis on Xarelto which was stopped 3 days ago. 4. Cervical cancer with local reoccurrence currently undergoing chemotherapy with Dr. Marily Allen. 5. Altered mental status which is improved. 6. Urinary tract infection. Currently on antibiotics with Levaquin. 7. 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 8. Acute on chronic renal failure. 9. Diarrhea. Stool studies pending. RECOMMENDATIONS: We will check the stool studies for diarrhea. We will start the patient on iron- C b.i.d. and multivitamin daily. For anemia we will start her on Protonix twice daily. The patient has a prior remote history of peptic ulcer disease and she has been on blood thinners in the past. We will transfuse as needed to keep hemoglobin more than 7 g/dL. We will schedule her for EGD tomorrow under anesthesia. The risks, benefits, indications, and alternatives to the procedure were discussed with the patient and family and all questions answered. The patient does complain of hematuria which could be related to local recurrence of cervical cancer and possible fistula in that area. This may have to be investigated by the Urology team who is already on board. I discussed above plans with the patient and family. All questions answered. Please call with any further questions. cc: MD Kali Carmona MD Heather Shah, MD Manish Arora, MD MTDD
[2019-08-28] MEDS: NS 1,000 ML IV SCH (04:34)
[2019-08-28 06:45] LABS: HEMATOCRIT 23.9 % (37.0-47.0); HEMOGLOBIN 7.3 g/dL (12.0-16.0); MCH 27.4 PG (27-31); MCHC 30.5 g/dL (33-37); MCV 89.8 FL (81-99); MPV 9.8 FL (7.4-10.4); RBC 2.66 XMIL (4.2-5.4); RDW 17.5 % (11.5-14.5); WBC 8.82 X1000 (4.8-10.8)
[2019-08-28 07:02] LABS: ALBUMIN 2.4 g/dL (3.5-5.0); CALCIUM 10.3 mg/dL (8.8-10.2); CREATININE 1.7 mg/dL (0.5-0.9); PHOSPHORUS 3.5 mg/dL (2.7-4.5); POTASSIUM 4.1 mmol/L (3.5-5.1)
[2019-08-28] MEDS ORDERED: VERSED ONE (08:02)
[2019-08-28] MEDS ORDERED: DIPRIVAN 1% ONE (08:02)
[2019-08-28] MEDS ORDERED: LOVENOX SUBQ SCH (09:00)
--- NOTE | 2019-08-28 09:35 | ENDOSCOPY OPERATIVE NOTE ---
[facility] ENDOSCOPY OPERATIVE NOTE , EGD PROCEDURE REPORT EXAM DATE: 08/28/2019 PATIENT NAME: Laura Sanz MR#: [id number] BIRTHDATE: 1965 ATTENDING: Angel Caceres MD STATUS: inpatient JUNIOR BUYER: INDICATIONS: The patient is a 53 yr old female here for an EGD due to Anemia, Positive Hemoccult, Ce rvical cancer for last 2 years. PROCEDURE PERFORMED: EGD w/ control of bleeding MEDICATIONS: Per Anesthesia ESTIMATED BLOOD LOSS: None CONSENT: The patient understands the risks and benefits of the procedure and understands that these r isks include, but are not limited to: sedation, allergic reaction, infection, perforation and/or bleeding. Alternative means of evaluation and treatment include, among others: physical exam, x-rays, and/or surgical intervention. The patient elects to proceed with this endoscopic procedure. DESCRIPTION OF PROCEDURE: During pre-op preparation period all mechanical and medical equipment was c hecked for proper function. Hand hygiene and appropriate measures for infection prevention was taken. After the risks, benefits and alternatives of the procedure were thoroughly explained, Informed consent was verified, confirmed and timeout was successfully executed by the treatment team. The patient was anesthetized with topical anesthesia and the [id number] ([id number]) endoscope was introduced through the mouth and advanced to the second portion of the duoden um. Retroflexion was performed in the stomach and revealed no abnormalities. The gastroscope was then slowly withdraw n and removed. The patient's toleration of the procedure was good. ESOPHAGUS: Z line at 40 cms. The mucosa of the esophagus appeared normal. STOMACH: The mucosa of the stomach appeared normal. DUODENUM: Mild duodenal inflammation was found in the duodenal bulb. The duodenal mucosa showed no abnormalities in the 2nd part of the duodenum. Two arteriovenous malformations measuring 2mm in size were found in t he duodenal bulb. Cautery was applied to the sites. Light pressure was applied to the cautery site with good treatment effect. ADVERSE EVENTS: There were no complications. IMPRESSIONS: 1. Z line at 40 cms 2. The mucosa of the esophagus appeared normal 3. The mucosa of the stomach appeared normal 4. Duodenal inflammation was found in the duodenal bulb 5. The duodenal mucosa showed no abnormalities in the 2nd part of the duodenum 6. 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; cautery wa s applied to the sites; with good treatment effect RECOMMENDATIONS: Schedule for colonoscopy in AM with Dr White Clear liquids today Start Golytely 1 gallon today at 12 noon NPO past MN Continue PPI QD for 90 days Transfuse as needed REPEAT EXAM: Angel Caceres MD eSigned: Angel Caceres MD 08/28/2019 9:34 AM CC: CPT CODES: 05921 Upper gastrointestinal endoscopy including esophagus, stomach, and either the du odenum and/or jejunum as appropriate; with control of bleeding, any method ICD CODES: The ICD and CPT codes recommended by this software are interpretations from the data that the [facility] staff has captured with the software. The verification of the translation of this report to the ICD and CPT co javier and modifiers is the sole responsibility of the health care institution and practicing physician where this report was generated. [employer] will not be held responsible for the validity of the ICD and CPT codes i ncluded on this report. AMA assumes no liability for data contained or not contained herein. CPT is a registered tra demark of the [employer]. PATIENT NAME: Laura Sanz MR#: [id number]
[2019-08-28] MEDS: VITAMIN B-12 PO SCH (09:59)
[2019-08-28] MEDS: NEURONTIN PO SCH ×2 (09:59→20:29)
[2019-08-28] MEDS: CATAPRES PO SCH ×2 (09:59→20:29)
[2019-08-28] MEDS: CULTURELLE PO SCH ×2 (09:59→20:29)
[2019-08-28] MEDS: PAXIL PO SCH (09:59)
[2019-08-28] MEDS: CENTRUM SILVER PO SCH (09:59)
[2019-08-28] MEDS: LEVAQUIN 250 MG/D5W 250 MG/50 ML IVPB IV SCH (10:00)
[2019-08-28] MEDS: ICAR-C PO SCH ×2 (10:00→20:29)
[2019-08-28] MEDS: NICODERM PATCH TD SCH (10:00)
[2019-08-28] MEDS: XANAX PO SCH (10:00)
[2019-08-28] MEDS: ISOPTIN SR PO SCH (10:01)
[2019-08-28] MEDS: PROTONIX IV SCH ×2 (10:14→20:29)
[2019-08-28] MEDS ORDERED: GOLYTELY PO ONE (12:00)
[2019-08-28] MEDS ORDERED: VENOFER 300 MG in NS 250 ML IV ONE (13:22)
--- NOTE | 2019-08-28 14:28 | PROGRESS NOTE ---
DATE: 08/28/2019 SUBJECTIVE: This morning, Ms. Sanz refers to be doing a lot better. I think the son was at the bedside at the time of the encounter. She just came out of the EGD. OBJECTIVE: Vital signs: Blood pressure 123/67, pulse of 54, respiration is 13, temperature 97.3 degrees. General: Ms. Sanz is a 53-year-old female. She is in bed. No distress. Mucosa is pink and moist. Anicteric. Acyanotic. Neck: Supple. No JVD. Chest good. Respiratory: System there is good air entry bilaterally. No crepitations. No rhonchi. Cardiovascular: Regular rate and rhythm. No murmurs, no rubs, no gallops. Abdomen: Soft, nontender. Bowel sounds present. Extremities: No pedal edema. Central Nervous System: Patient is awake, alert, oriented. There is no focal deficit. LABORATORY DATA: Chemistry reviewed. Creatinine is up to 1.7 this morning. So far the stool studies shows no enteric pathogen. Clostridium difficile is negative. ASSESSMENT: 1. Altered mental status on presentation, resolved. Initial CT scan was unremarkable. We think it is related to metabolic and infectious encephalopathy. 2. Pseudomonas aeruginosa urinary tract infection. The patient is on Levaquin. We will plan to treat this for a total of 10 days because of stents that she has in her genitourinary tract. 3. Left basilar infiltrate concerning for pneumonia. We will continue with antibiotics. 4. History of metastatic cervical cancer complicated with obstructive right uropathy with right hydronephrosis. The patient is status post bilateral stent placement by Dr. Reyes on 07/17/2019. 5. Acute on chronic renal failure. Stable. 6. Normocytic anemia. Hemoglobin and hematocrit has slightly dropped today. 7. Upper gastrointestinal bleed. Patient is status post esophagogastroduodenoscopy. Findings are documented in the chart. Remarkably, there were arteriovenous malformations in the duodenum and cautery was applied. 8. Diarrhea secondary to antibiotic side effects. So far, Clostridium difficile is negative and no pathogen. We will put the patient on Imodium to help this. 9. Xarelto anticoagulation for right lower extremity deep vein thrombosis. The patient is currently on just prophylactic Lovenox. Xarelto has been withheld until we clear the gastrointestinal tract. PLAN: In general, I think Ms. Sanz is doing well. She is status post EGD. Some AVMs were found and cautery was applied. Hemoglobin and hematocrit has dropped slightly today. We are going to continue to monitor this. Her lab work also shows anion gap metabolic acidosis which would be consistent with her longstanding kidney disease so will switch her fluids to contain bicarbonate for today and re- evaluate her in the morning. Ms. Sanz is pending a colonoscopy tomorrow. We will continue the preparation for that. cc: Aleksandr Roy MD
[2019-08-28] MEDS: SODIUM BICARBONATE 8.4% 100 MEQ in D5W 1,000 ML IV SCH (18:05)
[2019-08-28] MEDS: SODIUM CHLORIDE 0.9% INJ SCH (20:29)
[2019-08-29] MEDS: SODIUM BICARBONATE 8.4% 100 MEQ in D5W 1,000 ML IV SCH (04:38)
[2019-08-29] MEDS ORDERED: DIPRIVAN 1% 500 MG/50 ML BOTTLE ONE (06:55)
[2019-08-29] MEDS ORDERED: FENTANYL ONE (07:03)
[2019-08-29 07:21] LABS: ALBUMIN 2.7 g/dL (3.5-5.0); CALCIUM 10.6 mg/dL (8.8-10.2); CREATININE 1.2 mg/dL (0.5-0.9); PHOSPHORUS 3.1 mg/dL (2.7-4.5); POTASSIUM 3.4 mmol/L (3.5-5.1)
[2019-08-29 07:35] LABS: HEMATOCRIT 29.9 % (37.0-47.0); HEMOGLOBIN 9.1 g/dL (12.0-16.0); MCH 27.3 PG (27-31); MCHC 30.4 g/dL (33-37); MCV 89.8 FL (81-99); RBC 3.33 XMIL (4.2-5.4); RDW 17.9 % (11.5-14.5); WBC 9.06 X1000 (4.8-10.8)
--- NOTE | 2019-08-29 08:49 | ENDOSCOPY OPERATIVE NOTE ---
[facility] ENDOSCOPY OPERATIVE NOTE , COLONOSCOPY PROCEDURE REPORT EXAM DATE: 08/29/2019 PATIENT NAME: Laura Sanz MR #: [id number] BIRTHDATE: 1965 ENDOSCOPIST: Jerry White MD STATUS: inpatient MANUGRAPHER: INDICATIONS: The patient is a 53 yr old female here for a colonoscopy due to anemia, non-specific an d heme-positive stool, fecal abnormality. PROCEDURE PERFORMED: Colonoscopy, diagnostic MEDICATIONS: Per Anesthesia PREP TYPE: GoLytely
[2019-08-29] MEDS: PROTONIX IV SCH (09:17)
[2019-08-29] MEDS: PAXIL PO SCH (09:17)
[2019-08-29] MEDS: POTASSIUM CHLORIDE 20 MEQ/SWI 20 MEQ/100 ML IVPB IV SCH ×2 (09:17→11:11)
[2019-08-29] MEDS: ISOPTIN SR PO SCH (09:18)
[2019-08-29] MEDS: XANAX PO SCH (09:19)
[2019-08-29] MEDS: ICAR-C PO SCH (09:20)
[2019-08-29] MEDS: CENTRUM SILVER PO SCH (09:20)
[2019-08-29] MEDS: CULTURELLE PO SCH (09:20)
[2019-08-29] MEDS: VITAMIN B-12 PO SCH (09:20)
[2019-08-29] MEDS: NEURONTIN PO SCH (09:20)
[2019-08-29] MEDS: LEVAQUIN 250 MG/D5W 250 MG/50 ML IVPB IV SCH (09:22)
[2019-08-29] MEDS: CATAPRES PO SCH (09:22)
[2019-08-29] MEDS ORDERED: DIPRIVAN 1% ONE (09:22)
[2019-08-29] MEDS: NICODERM PATCH TD SCH (09:23)
[2019-08-29] MEDS ORDERED: EPINEPHRINE SYRINGE ONE (10:13)
[2019-08-29 11:38] VITALS: BP 122/75
--- NOTE | 2019-08-29 16:53 | DISCHARGE SUMMARY ---
ADMISSION DATE: 08/24/2019 DISCHARGE DATE: 08/29/2019 DISPOSITION: To home. FOLLOWUP: 1. Dr. Foster. 2. Dr. White. 3. Dr. Allen. CONSULTATION DURING THIS ADMISSION: GI was consulted. Patient was seen by Dr. Caceres and followed up by Dr. White. INVASIVE PROCEDURES DONE DURING THIS ADMISSION: 1. An EGD was done which showed duodenal inflammation found in the duodenal bulb. There were 2 artery venous malformations measuring 2 mm in size found in the duodenal bulb. Cautery was applied to the sites with good treatment effect. A 2. Colonoscopy was done today, showed small internal hemorrhoids, mild nonbleeding diverticulosis. IMAGING STUDIES OF SIGNIFICANCE: 1. Chest x-ray shows small left basilar infiltrates. 2. CT scan of the head showed mild microangiopathic changes. 3. Repeat chest x-ray showed no changes. ADMISSION DIAGNOSIS: 1. Healthcare acquired pneumonia. 2. Stage 2 sacral decubitus ulcer. 3. Questionable urinary tract infection. 4. Cervical cancer. 5. Acute kidney injury. DIAGNOSIS AT THE TIME OF DISCHARGE: 1. Altered mental status on presentation due to global encephalopathy. Initial CT scan was unremarkable. We think this is related to metabolic and/or infectious encephalopathy. 2. Pseudomonas aeruginosa urinary tract infection. 3. Left bibasilar infiltrate concerning for pneumonia. 4. History of metastatic cervical cancer, complicated with obstructive right uropathy with right hydronephrosis. The patient is status post bilateral stent placement by Dr. Reyes on 07/17/2019. She is supposed to follow up with him. 5. Acute on chronic renal failure. Her creatinine has come down to 1.2, which seems to be patient's baseline. 6. 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 The patient is status post cauterization. Colonoscopy was unremarkable. 7. Xarelto anticoagulation for right lower extremity deep vein thrombosis. 8. Hypertension. 9. Tobacco use and abuse. Patient has been started on nicotine patch. DISCHARGE MEDICATIONS: 1. Clonidine 0.2 mg p.o. b.i.d. 2. Verapamil 240 p.o. daily. 3. Zolpidem 10 mg p.o. at bedtime p.r.n. 4. Alprazolam 0.5 p.o. daily. 5. Gabapentin 600 b.i.d. 6. Paroxetine 10 mg daily. 7. Iron sulfate. 8. Rivaroxaban 20 mg p.o. daily. 9. Cyanocobalamin 1,000 mcg p.o. daily. 10. [place]. 11. Ergocalciferol. 12. Multivitamin 1 tablet daily. 13. Levofloxacin 500 p.o. daily for an additional 5 days. 14. Nicotine patch. PRESENTING COMPLAINT: Altered mental status. HISTORY OF PRESENTING COMPLAINT: Ms. Sanz is a 53-year-old, -[place] female, with a history of cervical cancer with underlying obstructive uropathy who underwent ureteral stent with Dr. Reyes. Comes in at this time because of altered mental status. The patient was thought to probably have an infectious encephalopathy and was admitted to [facility] for further medical care. HOSPITAL COURSE: Ms. Sanz was admitted to [facility]. Initially started on fluid resuscitation and broad-spectrum IV antibiotics to cover for possible UTI and pneumonia. She seems to have progressively gotten better. Urine culture came back positive for Pseudomonas pneumonia and antibiotics were changed to Levaquin to cover both for pneumonia and a urinary tract infection. Ms. Sanz's blood count drop to about 6.5 during the hospital course. Her stool was positive for blood, so we theorized that she was having GI bleed and the fact that she was on a blood thinner. GI was consulted. Patient was seen by Dr. Caceres and followed up by Dr. White. EGD and colonoscopies were done. Please refer to the details of the findings in the chart. Postoperatively Ms. Sanz continues to feel well. She is status post 1 PRBC transfusion. Hemoglobin has improved from 6.5 to 9.1. This morning she refers to feel a lot better. She denies any new complaints. Her creatinine is down to 1.2 from 2.7 on admission. We think she is clinically stable for discharge. A repeat chest x-ray 3 days ago did not see any acute changes. Ms. Sanz is going to continue with p.o. Levaquin for an additional 5 days for a total of 10 days antimicrobial therapy. Other discharge instructions have been discussed with her and she voiced understanding. Time spent for discharge was 35 minutes. cc: MD Kali Antonio MD Michael Kelso, MD Raphael K. Quansah, MD
== END 2019-08-29 17:55 | disposition home or self-care (01) ==
LOC: ED 21:30 → SUATTDRO 08-24 02:03 → 2N 08-24 02:03
PROVIDERS: ATTEND Internal Medicine

== ENCOUNTER 2019-12-20 09:26 | Inpatient (IN) ==
--- NOTE | 2019-12-20 09:35 | PROVIDER DOCUMENTATION ---
HPI-General Adult - General Stated Complaint: GENERALIZED WEAKNESS Time Seen by Provider: 12/20/19 09:32 Source: patient, EMS, old records Allergies/Adverse Reactions: Patient Allergies Allergy/AdvReac Type Severity Reaction Status Date / Time No Known Allergies Allergy Verified 12/20/19 10:12 Home Medications: Home Medication List Medication Instructions Recorded Confirmed Last Taken Type Clonidine [Catapres] 1 tab PO BID 02/15/15 11/05/19 10/15/19 History Verapamil HCl [Verapamil ER] 1 tab PO QAM 02/15/15 11/05/19 10/15/19 History Zolpidem [Ambien] 10 mg PO QHS PRN 06/17/18 11/05/19 10/15/19 History Alprazolam 0.5 mg PO QAM 08/13/18 11/05/19 10/15/19 History Gabapentin 600 mg PO BID 08/13/18 11/05/19 10/15/19 History Paroxetine [Paxil] 10 mg PO QAM 08/13/18 11/05/19 10/15/19 History Cyanocobalamin (Vitamin B-12) 1,000 mcg PO DAILY 07/14/19 11/05/19 10/15/19 History [Vitamin B-12] Ferrous Sulfate [Iron] 65 mg PO QAM 07/14/19 11/05/19 10/15/19 History Rivaroxaban [Xarelto] 20 mg PO QAM 07/14/19 11/05/19 10/14/19 History Ergocalciferol (Vitamin D2) 50,000 units PO DIRECTED 08/24/19 11/05/19 10/15/19 History [Vitamin D2] Iron Carbonyl/Ascorbic Acid 1 ea PO BID #120 tab 08/29/19 11/05/19 10/15/19 Rx [Icar-C] Multivitamins/Minerals [Centrum 1 ea PO QAM 10/14/19 11/05/19 10/15/19 History Silver] Oxycodone I.r. [Oxy Ir] 5 mg PO Q6H PRN PRN #10 cap 10/16/19 11/05/19 Unknown Rx Sulfamethoxazole/Trimethoprim 1 ea PO BID #6 tab 10/16/19 11/05/19 Unknown Rx [Bactrim Ds Tablet] - History of Present Illness -Gen Adult Nature of Presenting Problems: pt w/ known PMHx of metastatic cerv CA receiving ongoing chemo cc: weakness. she was last adm 08/2019, as follows: ADMISSION DIAGNOSIS: 1. Healthcare acquired pneumonia. 2. Stage 2 sacral decubitus ulcer. 3. Questionable urinary tract infection. 4. Cervical cancer. 5. Acute kidney injury. DIAGNOSIS AT THE TIME OF DISCHARGE: 1. Altered mental status on presentation due to global encephalopathy. Initial CT scan was unremarkable. We think this is related to metabolic and/or infectious encephalopathy. 2. Pseudomonas aeruginosa urinary tract infection. 3. Left bibasilar infiltrate concerning for pneumonia. 4. History of metastatic cervical cancer, complicated with obstructive right uropathy with right hydronephrosis. The patient is status post bilateral stent placement by Dr. Reyes on 07/17/2019. She is supposed to follow up with him. 5. Acute on chronic renal failure. Her creatinine has come down to 1.2, which seems to be patient's baseline. 6. 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 The patient is status post cauterization. Colonoscopy was unremarkable. 7. Xarelto anticoagulation for right lower extremity deep vein thrombosis. 8. Hypertension. 9. Tobacco use and abuse. Patient has been started on nicotine patch. DISCHARGE MEDICATIONS: 1. Clonidine 0.2 mg p.o. b.i.d. 2. Verapamil 240 p.o. daily. 3. Zolpidem 10 mg p.o. at bedtime p.r.n. 4. Alprazolam 0.5 p.o. daily. 5. Gabapentin 600 b.i.d. 6. Paroxetine 10 mg daily. 7. Iron sulfate. 8. Rivaroxaban 20 mg p.o. daily. 9. Cyanocobalamin 1,000 mcg p.o. daily. 10. Douglas. 11. Ergocalciferol. 12. Multivitamin 1 tablet daily. 13. Levofloxacin 500 p.o. daily for an additional 5 days. 14. Nicotine patch. Review of Systems - Adult - REVIEW OF SYSTEMS - ADULT Constitutional: reports: weight loss Eyes: reports: no symptoms reported Ears, Nose, Mouth & Throat: reports: no symptoms reported Cardiovascular: reports: no symptoms reported Respiratory: reports: no symptoms reported Gastrointestinal: reports: no symptoms reported Genitourinary: reports: dysuria, frequency Musculoskeletal: reports: no symptoms reported Integumentary: reports: skin sores/ulcer (sacral decubiti) Neurological: reports: no symptoms reported Psychiatric: reports: no symptoms reported Past History - Adult - PAST MEDICAL HISTORY-ADULT Review of Records: reports: Old Records Reviewed Major Childhood Illnesses: reports: denies history Cardiovascular: reports: HTN, hyperlipidemia Respiratory: reports: denies history Gastrointestinal: reports: denies history Obstetrical/Gynecological: reports: other (cervical cancer) Genitourinary: reports: other (kidney stent) Musculoskeletal: reports: neck/back injury, other (muscle spasms) Neurological: reports: denies history Psychiatric: reports: anxiety Endocrine/Immune: reports: denies history Other Conditions: reports: denies history - PRIOR SURGERIES/PROCEDURES Surgical/Procedure History: reports: other (port placement) - IMMUNIZATION STATUS Childhood Immunizations: See Nurse Assessment Flu Vaccine: See Nurse Assessment - FAMILY HISTORY Family History: reviewed, not pertinent Physical Exam-General - PHYSICAL EXAM-ADULT Initial Vital Signs Reviewed: Yes (tachycardia noted) - CONSTITUTIONAL General Appearance: mild distress, lethargic - EYES Eyes: PERRL/EOMI. negative: pink conjunctivae, sclera injected, scleral icterus - HEAD, EARS, NOSE, MOUTH & THROAT HENMT: normocephalic/atraumatic. negative: moist mucous membranes - NECK Neck: supple - RESPIRATORY Respiratory: lungs clear, normal breath sounds - CARDIOVASCULAR Cardiovascular: normal peripheral pulses, regular rate, rhythm, tachycardia - GASTROINTESTINAL (ABDOMEN) Abdominal Exam: normal bowel sounds, non tender, soft - LYMPHATIC Lymphatic: no adenopathy - MUSCULOSKELETAL Back Exam: no CVA tenderness Extremity: normal range of motion Peripheral Pulses: radial (R): 2+, radial (L): 2+ - SKIN Integumentary: decubitus, pallor. 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 pt has been given empiric coverage w/ Rocephin and Vancomycin. will consult Hospitalist service for admit.) - CONSULTS/PCP/HOSPITALIST Notification #1 *Consult/PCP/Hospitalist*: ([place]) Time Discussed: 13:01 Consult Disposition: Will see in ED Departure - Departure Date of Disposition Decision: 12/20/19 Time of Disposition Decision: 13:01 DIAGNOSIS: UTI (urinary tract infection), Severe sepsis, JULIO CESAR (acute kidney injury), Metastasis from cervical cancer, Radiation cystitis Disposition: ADMITTED INPATIENT 09 Certified Medical Emergency: Emergent Condition: Critical - Critical Care Note This patient required my direct & personal management of CC.: Yes Total Time (mins): 45 Critical Care Statement: This patient required my direct personal management to treat or rule out processes, the absence of which, could potentiallly result in sudden, clinically significant life or limb threatening deterioration. Attestation - Physician/ GEORGE Attestation The physician spent face to face time with patient:: Yes Advanced Practice Provider documentation review:: Supervising physician onsite and consulted in the evaluation and care of this patient. The physician did have a face to face encounter with the patient.
[2019-12-20] MEDS ORDERED: NS 1,000 ML IV ONE (09:51)
[2019-12-20] MEDS ORDERED: EPINEPHRINE 4 MG in NS 250 ML IV SCH (10:00)
[2019-12-20] MEDS ORDERED: ROCEPHIN 2 GM in NS 50 ML IV ONE (10:00)
[2019-12-20 11:10] LABS: BASO# 0.03 X1000 (0.0-0.2); BASO% 0.1 % (0.0-0.8); EOS# 0.03 X1000 (0.0-0.7); EOS% 0.1 % (0.0-10.0); HEMATOCRIT 23.2 % (37.0-47.0); IMM GRAN% 0.6 % (0.0-0.5); LYMPH# 0.84 X1000 (1.2-3.4); LYMPH% 2.6 % (20.5-51.1); MCH 34.5 PG (27-31); MCHC 34.5 g/dL (33-37); MONO# 1.83 X1000 (0.11-0.59); MONO% 5.6 % (1.7-9.3); MPV 9.9 FL (7.4-10.4); NEUT# 29.99 X1000 (1.4-6.5); PLT 515 X1000 (130-400); RBC 2.32 XMIL (4.2-5.4); RDW 19.1 % (11.5-14.5); WBC 32.92 X1000 (4.8-10.8)
[2019-12-20 11:14] LABS: INR 1.29; PROTIME 16.3 Seconds (11.0-16.0)
[2019-12-20 11:15] LABS: PTT 37.8 Seconds (22.3-41.8)
--- NOTE | 2019-12-20 11:17 | ED EKG INTERP ---
This chart was entered by Casie James Scribe, acting as scribe for Truman Garcia MD. EKG Interpretation - EKG Time of EKG reading by physician:: 10:48 EKG Read and Signed by:: Truman Garcia EKG Interpretation (*Must complete 3 of following elements*): Abnormal Rate: 124 Rhythm: sinus tachycardia Comments: possible left atrial enlargement Attestation - Physician/ GEORGE Attestation The physician spent face to face time with patient:: Yes Advanced Practice Provider documentation review:: Supervising physician onsite and consulted in the evaluation and care of this patient. The physician did have a face to face encounter with the patient. This chart was documented by the indicated scribe, (Casie James Scribe) and accurately reflects the services I performed and decisions made by me, Truman Garcia MD, as attested by the provider's signature.
[2019-12-20 11:20] LABS: ALB/GLOB RATIO 0.5; ALBUMIN 2.3 g/dL (3.5-5.0); ANISOCYTOSIS 4+; BANDS 2 % (0-1); CALCIUM 8.4 mg/dL (8.8-10.2); CREATININE 2.3 mg/dL (0.5-0.9); LYMPHS 4 % (21-51); MAGNESIUM 1.8 mg/dL (1.5-2.7); MONO 6 % (1-9); POTASSIUM 4.7 mmol/L (3.5-5.1); SEGS 88 % (42-75); TOTAL BILIRUBIN 0.56 mg/dL (0.20-1.00); TOTAL PROTEIN 6.9 g/dL (6.3-8.3)
[2019-12-20 11:21] LABS: HYPOCHROM 3+; LARGE PLATELETS 1+
[2019-12-20] MEDS ORDERED: VANCOMYCIN 1 GM/NS 1 GM/250 ML IVPB IV ONE (11:36)
[2019-12-20 12:03] LABS: URINE SOURCE CLEAN CATCH
[2019-12-20 12:06] LABS: BILIRUBIN URINE NEGATIVE (NEGATIVE); BLOOD URINE LARGE (NEGATIVE); COLOR ORANGE; GLUCOSE URINE NEGATIVE (NEGATIVE); KETONE URINE NEGATIVE (NEGATIVE); LEUKOCYTES URINE LARGE (NEGATIVE); NITRITE URINE NEGATIVE (NEGATIVE); PH URINE 7.5; PROTEIN URINE 600 mg/dL (NEGATIVE); SP GRAVITY URINE 1.016; TURBIDITY URINE TURBID (CLEAR); UROBILINOGEN URINE 2 mg/dL (NORMAL)
[2019-12-20 12:08] LABS: UR EPITHELIAL CELLS <10 /HPF (<10); URINE BACTERIA 4+ /HPF; URINE RBC TNTC /HPF (<10)
--- NOTE | 2019-12-20 12:28 | Diag Imaging Result Doc PS360 ---
EXAM: CHEST-1 VIEW HISTORY: dyspnea, cervical CA TECHNIQUE: Single view COMPARISON: 08/27/2019 FINDINGS: The lungs are well expanded. The heart is not enlarged. There is a right jugular portacatheter. No pneumothorax. The vessels are not distended. There are no infiltrates. No effusion identified. IMPRESSION: Negative exam. Electronically signed by Reynold Carpenter 12/20/2019 12:26 PM
[2019-12-20] MEDS ORDERED: SODIUM CHLORIDE 0.9% INJ SCH (13:45)
--- NOTE | 2019-12-20 15:22 | Diag Imaging Result Doc PS360 ---
EXAM: US RENAL 2 (RETROPER) COMPLETE HISTORY: JULIO CESAR, h/o bilateral ureteral stents TECHNIQUE: Renal ultrasound COMPARISON: 03/19/2019 FINDINGS: The right kidney measures 9.5 x 5.1 x 3.4 cm. The left kidney measures 9.5 x 5.8 x 4.8 cm. No hydronephrosis to either kidney. Normal echogenicity and cortical thickness. 7 mm left renal stone versus stent. No stent identified on the right. IMPRESSION: No hydronephrosis Electronically signed by Reynold Carpenter 12/20/2019 3:20 PM
[2019-12-20] MEDS ORDERED: LR 1,000 ML IV ONE (15:58)
[2019-12-20] MEDS ORDERED: VANCOMYCIN IV PER PHARMACY MISC SCH (16:15)
[2019-12-20] MEDS: MAXIPIME 1 GM in NS 50 ML IV SCH (17:05)
[2019-12-20] MEDS ORDERED: NS 500 ML IV ONE (17:07)
[2019-12-20] MEDS: NS 1,000 ML IV SCH (17:17)
[2019-12-20] MEDS: PROTONIX IV SCH (17:17)
[2019-12-20] MEDS: MYCOSTATIN SUSP PO SCH ×2 (17:18→21:32)
[2019-12-20] MEDS: PYRIDIUM PO SCH ×2 (17:18→21:32)
[2019-12-20] MEDS ORDERED: LOVENOX SUBQ SCH (18:00)
[2019-12-20] MEDS: MORPHINE IV PRN (18:28)
--- NOTE | 2019-12-20 18:28 | Diag Imaging Result Doc PS360 ---
EXAM: CT ABDOMEN/PELVIS W/O CONTRAST HISTORY: Hematuria. ?H/o hole in a bladder. TECHNIQUE: CT abdomen and pelvis without oral or intravenous contrast COMPARISON: None. FINDINGS: No calcified gallstones or adjacent inflammation. Heterogeneous liver. No splenomegaly. No inflammation about the pancreas. Normal adrenal glands. There are bilateral ureteral stents. Each renal pelvis is mild bleed dilated. No aortic aneurysm. Moderate atherosclerosis. No bowel obstruction. Questionable thickening to the wall of the colon. There are many colonic diverticula. No abscess. The uterus has been removed. No pelvic mass. IMPRESSION: 1.Bilateral ureteral stents 2.Diverticulosis. Questionable colitis. 3.Hysterectomy This exam was performed using automated exposure control, adjustment of mA or kV according to patient size, and/or use of iterative reconstruction technique. Electronically signed by Reynold Carpenter 12/20/2019 6:25 PM
[2019-12-20] MEDS: ZOFRAN IV PRN (18:42)
--- NOTE | 2019-12-20 19:44 | HISTORY AND PHYSICAL ---
ADDENDUM: This is an addendum to history and physical dictated by the nurse practitioner. I agree with most components of history and physical, assessment, and plan. 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 In the emergency room the patient was found to have severe sepsis with leukocytosis, profound volume depletion, and pyuria. She was resuscitated with intravenous fluids and intravenous antibiotics, and hospitalist team was consulted for further management. At the time of my evaluation, Miss Sanz does not appear in any acute distress though she appears extremely weak and dehydrated though she is alert and oriented. REVIEW OF SYSTEMS: Positive for dry mouth. Negative for chest pain. Negative for shortness of breath. Negative for cough. Negative for nausea or vomiting. Positive for lower abdominal pain. Negative for pyuria or hematuria. PHYSICAL EXAMINATION: VITAL SIGNS: Currently temperature 97.6 degrees, pulse 111, respiratory rate 32, blood pressure 128/81, saturating 100% on room air. GENERAL: Not in any acute distress. Oral cavity has oral thrush and appears dry. LUNGS: Air entry bilaterally equal. No wheeze, rhonchi, or crackles. CARDIOVASCULAR: S1, S2 normal. Tachycardic. No murmur, rub, or gallop. ABDOMEN: Soft. Mild tenderness in suprapubic region. EXTREMITIES: Her lower extremity is extremely dry. CHEST: She has a right-sided chest port. NEUROLOGIC: She is alert and oriented x3. PULSES: She has 2+ bilateral radial, posterior tibial, and dorsalis pedis pulses. SKIN: Skin appears pale. She has conjunctival pallor. Capillary refill time less than 2 seconds. LABORATORIES: Suggestive of WBC of 32,000, hemoglobin 8, platelet count 515,000. INR 1.2. BUN 35, creatinine 2.3. She has calcium of 8.4, alkaline phosphatase of 300, lactic acidosis of 2.6. IMAGING ON PRESENTATION: Renal ultrasound did not have any hydronephrosis. Chest x-ray was negative. Electrocardiogram had sinus tachycardia though I do not have any scan result available. ASSESSMENT AND PLAN: 1. Severe sepsis due to acute urinary tract infection due to acute cystitis with hematuria. I will resuscitate her with intravenous fluids. I will add second liter of intravenous bolus and continue continuous intravenous fluids. Continue intravenous vancomycin and change antibiotics to intravenous cefepime considering history of Pseudomonas. Renal ultrasound does not have hydronephrosis or any definitive stranding to suggest acute pyelonephritis. She did not have any costovertebral angle tenderness. Follow up blood culture and urine culture results. 2. Hyponatremia, hypochloremia, Pre renal renal failure on likely chronic kidney disease stage 3, and lactic acidosis in the setting of severe sepsis. Resuscitate her with intravenous fluids. Follow up with electrolytes as well as serial lactic acid levels. 3. Anemia with prior history of gastrointestinal bleed leading to blood loss anemia. Resume her home iron and multivitamin tablets. Continue her on intravenous pantoprazole every 24 hours. I am holding her Xarelto at the moment in the setting of acute kidney injury which she takes for DVT. 4. History of metastatic cervical cancer involving lymph nodes and other organs. She would need outpatient oncology followup. I will give her phenazopyridine for lower abdominal likely urinary bladder spasm. 5. Others. Start nystatin for oral thrush; continue intravenous morphine for sacral decubitus and lower abdominal cancer-related pain; and paroxetine and alprazolam for anxiety. DISPOSITION: Continue to monitor the patient inside the hospital. I allowed her to ask questions. All of her questions were satisfactorily answered. ADDENDUM: While inserting kemp catheter, she had significant hematuria. So, I will give her 1 unit PRBC for acute blood loss anemia on top of her chronic anemia. I will not insert catheter for now. TOTAL TIME SPENT: 35 minutes were spent in taking of this septic patient. cc: Abdoul Walton MD [facility]ITALWiliam
--- NOTE | 2019-12-20 21:21 | SEPSIS: TISSUE PERFUSION ASSMT ---
Sepsis: Tissue Perfusion Assmt - Physical Exam Assessment Date: 12/20/19 Time Assessment Initialized: 18:00 Vital Signs: Last Vital Signs Temp 98.2 F 12/20/19 20:00 Pulse 85 12/20/19 20:00 Resp 19 12/20/19 20:00 BP 113/84 12/20/19 20:00 Pulse Ox 100 12/20/19 20:00 Height 5 ft 2 in Weight 58.287 kg Lung Sounds: lungs clear Heart Sounds: Regular Capillary Refill Time: Less Than 2 Seconds Peripheral Pulse Evaluation: radial (R): 2+, radial (L): 2+, dorsalis-pedis (R): 2+, dorsalis-pedis (L): 2+, posterior tibialis (R): 2+, posterior tibialis (L): 2+ Skin Exam: pale - Alternative Fluid Bolus Bolus Option: Alternative Fluid Resuscitation Bolus for morbidly obese patients with a BMI >30, Refer to [facility] [place] Body Weight Chart for Reference. Is patient's BMI >30?: No - Impression Impression: Tissue Perfusion Adequate (Patient has anemia. IV fluid bolus has been ordered. She has adequate perfusion by capillary refill time and has adequate pulse.)
--- NOTE | 2019-12-20 21:25 | HISTORY AND PHYSICAL ---
CHIEF COMPLAINT: Suprapubic low abdominal pain and generalized body aches. HPI: This is a 54-year-old female with a history of cervical cancer, radiation cystitis and right lower extremity deep venous thrombosis. She presents to the emergency room complaining of suprapubic bilateral lower quadrant pain as well as right flank pain and generalized weakness. She states this has been present for a week. It has been getting worse over the last 2 to 3 days. Ms Sanz has a history of cervical cancer. She is being followed by Dr. Marily Allen. She has been receiving chemotherapy every 3 weeks her last treatment being 2 weeks ago. She states over the last 2 to 3 days she has been incontinent of urine, she has been getting progressively weaker to the point she cannot walk. She states "my pee stinks." She does have pressure sores to her buttocks and she is noted to have excoriation to her perineal area. She was found to be acute kidney injury. She states that she has had constant urinary leakage for quite some time now. Ms Sanz underwent bilateral ureteral stent exchange 10/16/2019. She states that over the last. She does have chronic indwelling ureter stents secondary to obstruction and damage from radiation. PAST MEDICAL HISTORY: 1. Cervical cancer. 2. Sacral decubitus. 3. Chronic kidney disease stage 3. 4. Radiation cystitis. 5. Bilateral hydronephrosis secondary to complications of radiation requiring indwelling stents. 6. Vesicovaginal fistula. PAST SURGICAL HISTORY: 1. Bilateral ureteral stent placements. 2. Port-A-Cath. SOCIAL HISTORY: She smokes. She denies alcohol or illicit drug use. FAMILY HISTORY: Positive for cancer although she does not remember what kind. ALLERGIES: No known drug allergies. HOME MEDICATIONS: A list will be obtained by the nursing staff. REVIEW OF SYSTEMS: Discussed with the patient with pertinent positives stated in the HPI. Patient has dementia. She is unable to answer questions. Stated in HPI I am unable to obtain any more complaints or answers as the patient does have dementia and there no family members present. PHYSICAL EXAMINATION: GENERAL: This is a 54-year-old female who is sitting up in the stretcher in the emergency room in no distress. VITAL SIGNS: Blood pressure is 132/77 with a heart rate of 100, respirations are 22, temperature is 97.6 degrees with room air saturations 100%. HEENT: Head is normocephalic, atraumatic. Mucous membranes are moist. NECK: Supple with trachea midline. No JVD. CARDIOVASCULAR: Regular rate and rhythm. S1 and S2 appreciated. She is tachycardic. No murmur. PULMONARY: Breath sounds are clear. No increased work of breathing noted. Chest rises and falls symmetric respiration. GASTROINTESTINAL: Abdomen soft, nontender, nondistended. Bowel sounds in all 4 quadrants. GENITOURINARY: She has right CVAT and suprapubic tenderness . NEUROLOGIC: She is alert, she is oriented to herself. She knows she is at [facility]. LABS: WBC is 32.9 with hemoglobin 8, hematocrit 23.2, platelets of 515,000. Sodium 130, potassium 4.7, BUN 35, creatinine 2.3 with a glucose of 106. Urinalysis reveals large amount of blood with large leukocytes, 10 to 20 white blood cells, too numerous to count red blood cells which is consistent with urinary stents. Blood cultures, urine cultures are pending. Chest x-ray revealed negative exam. Lungs are well expanded, heart is not enlarged. There is a right jugular Port-A-Cath, no pneumothorax. Vessels are not distended. There are no infiltrates. ASSESSMENT AND PLAN: 1. Sepsis. This is presumed from a urinary tract infection. In reviewing the patient's chart, she did have Pseudomonas urinary tract infection in August 2019. Urine culture is pending. Give antibiotic coverage of cefepime and vancomycin and further antibiotics will be culture driven. 2. Acute kidney injury overlying chronic kidney disease. The patient has chronic bilateral indwelling urinary stents that were exchanged. She underwent stent exchange on 10/16/2019 and 11/16/2019 she had a right upper quadrant ultrasound and at this time a stent was noted on the right. As she does have right costovertebral angle tenderness we will obtain a renal ultrasound today. Will give IV hydration and hold any renal toxic medications. 3. Metastatic cervical cancer. This is being followed by Dr. Marily Allen. We will consult her. 4. Radiation cystitis. Pyridium scheduled every 8 hours. A Banks catheter to look for hydronephrosis. Will check a magnesium and phosphorus along with a BMP in the morning. Continue IV hydration. 5. Metastatic cervical cancer followed by Marily Allen. We will consult her. 6. Radiation cystitis. Pyridium scheduled q.8 hours. 7. Anemia. This is chronic. 8. 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 We will continue PPI. Monitor hemoglobin and hematocrit. 9. Further treatments pending hospital course. Dictated by EDIS Lund for Abdoul Walton MD cc: EDIS Lund MD
[2019-12-20] MEDS: ICAR-C PO SCH (21:32)
[2019-12-21] MEDS: NS 1,000 ML IV SCH ×2 (02:40→13:00)
[2019-12-21] MEDS: MAXIPIME 1 GM in NS 50 ML IV SCH ×2 (04:55→16:13)
[2019-12-21] MEDS: PYRIDIUM PO SCH ×2 (04:55→14:10)
[2019-12-21] MEDS: MORPHINE IV PRN ×3 (06:17→21:23)
[2019-12-21] MEDS: ZOFRAN IV PRN ×3 (06:20→21:23)
[2019-12-21 07:25] LABS: BASO# 0.02 X1000 (0.0-0.2); BASO% 0.1 % (0.0-0.8); EOS# 0.09 X1000 (0.0-0.7); EOS% 0.3 % (0.0-10.0); HEMATOCRIT 26.6 % (37.0-47.0); HEMOGLOBIN 8.3 g/dL (12.0-16.0); IMM GRAN# 0.13 X1000 (0.0-0.04); IMM GRAN% 0.5 % (0.0-0.5); LYMPH# 0.54 X1000 (1.2-3.4); LYMPH% 1.9 % (20.5-51.1); MCH 28.6 PG (27-31); MCHC 31.2 g/dL (33-37); MCV 91.7 FL (81-99); MONO# 1.31 X1000 (0.11-0.59); MONO% 4.6 % (1.7-9.3); MPV 9.8 FL (7.4-10.4); NEUT# 26.56 X1000 (1.4-6.5); NEUT% 92.6 % (42.2-75.2); PLT 397 X1000 (130-400); RDW 19.1 % (11.5-14.5); WBC 28.65 X1000 (4.8-10.8)
[2019-12-21 07:42] LABS: CALCIUM 8.3 mg/dL (8.8-10.2); CREATININE 2.2 mg/dL (0.5-0.9); MAGNESIUM 1.7 mg/dL (1.5-2.7); POTASSIUM 3.9 mmol/L (3.5-5.1)
[2019-12-21 07:46] LABS: ANISOCYTOSIS 1+; BANDS 1 % (0-1); EOS 1 % (1-10); HYPOCHROM 3+; LYMPHS 2 % (21-51); MONO 5 % (1-9); SEGS 91 % (42-75)
[2019-12-21] MEDS: XANAX PO SCH (08:55)
[2019-12-21] MEDS: ICAR-C PO SCH ×2 (08:55→21:25)
[2019-12-21] MEDS: PAXIL PO SCH (08:56)
[2019-12-21] MEDS: MYCOSTATIN SUSP PO SCH ×4 (08:56→21:25)
[2019-12-21] MEDS: CENTRUM SILVER PO SCH (08:56)
[2019-12-21] MEDS: VITAMIN B-12 PO SCH (08:56)
[2019-12-21] MEDS ORDERED: FERROUS SULFATE PO SCH (09:00)
--- NOTE | 2019-12-21 09:19 | PROGRESS NOTE ---
DATE: 12/21/2019 INTERVAL HISTORY: Yesterday, while attempting Banks catheterization, patient had an episode of hematuria so the procedure was aborted and a CT scan of the abdomen and pelvis was performed which in fact did not comment on urinary bladder. However, the patient states, to her knowledge, she has not had any more blood in her urine. She was also given 1 unit of packed red blood cell transfusion for acute blood loss anemia. Her stent appeared to be located normally in bilateral ureters. SUBJECTIVE: Ms. Sanz denies any chest pain, shortness of breath. She denies any cough. She denies any abdominal pain anymore. Her suprapubic pain has resolved. REVIEW OF SYSTEMS: Negative for burning micturition. Negative for diarrhea or constipation. VITALS: Currently, temperature 98 degrees, pulse 86, respiratory rate 16, blood pressure 135/68, she is saturating 100% on room air. PHYSICAL EXAMINATION: Ms. Sanz is not in acute distress. She has conjunctival pallor. No cyanosis, clubbing, or icterus. Lungs: Air entry bilaterally equal. No wheeze, rhonchi, or crackles. Cardiovascular: S1, S2 normal. Not tachycardic. No murmur, rub, or gallop. Abdomen: Soft, nontender. She does not have a urine catheter. Her lower extremity skin appears wrinkled and dry. She has a right-sided chest port. She is alert and oriented x3. LABS: Suggest WBCs 28,000, hemoglobin 8.3, platelets 397,000. Sodium 132, potassium 3.9, her carbon dioxide is 16, her BUN is 36, creatinine of 2.2, her magnesium is 1.7. MICROBIOLOGY: Urine culture and blood cultures are in lab. IMAGING: Abdomen and pelvis CT yesterday had bilateral ureteral stents, diverticulosis with questionable colitis, hysterectomy. Renal ultrasound yesterday did not have any hydronephrosis. ASSESSMENT AND PLAN: 1. Severe sepsis due to acute urinary tract infection due to acute cystitis with hematuria. Continue intravenous fluids, intravenous vancomycin, and intravenous cefepime. She previously had bilateral ureteric stents which appear to be in good position. Follow up final culture data. 2. Hyponatremia, hypochloremia, acute kidney injury on likely chronic kidney disease stage 3 in the setting of severe sepsis without septic shock, now improving. Her lactic acidosis has resolved. I will start her on Bicitra for her normal anion gap metabolic acidosis. 3. Acute blood loss anemia on chronic blood loss anemia. Her acute blood loss anemia is due to hematuria and her chronic blood loss anemia was likely related to prior history of gastrointestinal bleed. Continue home iron, multivitamin tablet, intravenous pantoprazole. 4. History or Right lower Extremity: Hold Xarelto, start enoxaparin for deep venous thrombosis prophylactic dose. 4. History of metastatic cervical cancer. She has been on Keytruda outpatient. She will need outpatient oncology followup. 5. Others. Continue nystatin for oral thrush which is improving; intravenous morphine for sacral decubitus ulcer which is stage 2 involving both buttocks of about tennis ball size; morphine for cancer-related pain; paroxetine or alprazolam for anxiety. 6. Disposition. I will continue to monitor patient inside the hospital as I await culture data. Plan of care discussed with Ms. Sanz. Thirty-five minutes were spent in taking care of her. She was allowed to ask questions. All of her questions were answered. cc: Abdoul Walton MD MTDD
[2019-12-21] MEDS: PROTONIX IV SCH (16:14)
[2019-12-21] MEDS ORDERED: CALMOSEPTINE OINTMENT TOP PRN (18:43)
[2019-12-21] MEDS: CALMOSEPTINE OINTMENT TOP SCH (21:19)
[2019-12-22] MEDS: NS 1,000 ML IV SCH ×3 (00:57→15:01)
[2019-12-22] MEDS: MAXIPIME 1 GM in NS 50 ML IV SCH (05:00)
[2019-12-22 07:39] LABS: BASO# 0.02 X1000 (0.0-0.2); BASO% 0.1 % (0.0-0.8); EOS# 0.03 X1000 (0.0-0.7); EOS% 0.1 % (0.0-10.0); HEMATOCRIT 27.1 % (37.0-47.0); HEMOGLOBIN 8.2 g/dL (12.0-16.0); IMM GRAN# 0.19 X1000 (0.0-0.04); IMM GRAN% 0.6 % (0.0-0.5); LYMPH# 0.48 X1000 (1.2-3.4); LYMPH% 1.4 % (20.5-51.1); MCH 28.3 PG (27-31); MCHC 30.3 g/dL (33-37); MCV 93.4 FL (81-99); MONO% 4.5 % (1.7-9.3); MPV 9.7 FL (7.4-10.4); NEUT# 30.92 X1000 (1.4-6.5); NEUT% 93.3 % (42.2-75.2); PLT 384 X1000 (130-400); RDW 19.6 % (11.5-14.5); WBC 33.14 X1000 (4.8-10.8)
[2019-12-22 07:56] LABS: CALCIUM 8.3 mg/dL (8.8-10.2); CREATININE 2.1 mg/dL (0.5-0.9)
--- NOTE | 2019-12-22 07:57 | EKG Report ---
Test Performed on : 12/20/2019 10:48:25 AM Test Reason : dyspnea, tachycardia Blood Pressure : / mmHG Vent. Rate : 124 BPM Atrial Rate : 124 BPM P-R Int : 148 ms QRS Dur : 068 ms QT Int : 298 ms P-R-T Axes : 055 -19 043 degrees QTc Int : 428 ms Sinus tachycardia. Possible Left atrial enlargement Borderline ECG When compared with ECG of 14-JUL-2019 08:27, Vent. rate has increased BY 45 BPM Unconfirmed Result
[2019-12-22 08:29] LABS: BANDS 2 % (0-1); LARGE PLATELETS 2+; LYMPHS 7 % (21-51); SEGS 91 % (42-75)
[2019-12-22] MEDS: XANAX PO SCH (10:08)
[2019-12-22] MEDS: PAXIL PO SCH (10:08)
[2019-12-22] MEDS: ICAR-C PO SCH ×2 (10:08→20:10)
[2019-12-22] MEDS: VITAMIN B-12 PO SCH (10:08)
[2019-12-22] MEDS: MYCOSTATIN SUSP PO SCH ×4 (10:09→20:10)
[2019-12-22] MEDS: CALMOSEPTINE OINTMENT TOP SCH ×2 (10:09→15:01)
[2019-12-22] MEDS: CENTRUM SILVER PO SCH (10:09)
[2019-12-22] MEDS ORDERED: VANCOMYCIN 1 GM/NS 1 GM/250 ML IVPB IV SCH (12:00)
[2019-12-22] MEDS ORDERED: ROCEPHIN 1 GM in NS 50 ML IV SCH (13:00)
[2019-12-22] MEDS: PROTONIX IV SCH (15:02)
[2019-12-22] MEDS: MORPHINE IV PRN (15:59)
[2019-12-22] MEDS: ZOFRAN IV PRN (15:59)
[2019-12-22 19:30] VITALS: BP 160/87
--- NOTE | 2019-12-22 20:07 | DISCHARGE SUMMARY ---
ADMISSION DATE: 12/20/2019 DISCHARGE DATE: DISCHARGE DIAGNOSES: 1. Escherichia coli urinary tract infection, with partial resistance, but ewb-afdarjar-dzqtilgj beta lactamase. 2. Severe sepsis. 3. Hyponatremia. 4. Hypokalemia. 5. Chronic renal failure, stage IIIB. 6. Metastatic cervical cancer, on Keytruda. CONSULTATIONS: None. Briefly, this is a 54-year-old female who came in with a white count of 32,000 and creatinine of 2.3. She was given IV fluids. She had hematuria. She was on cefepime. She had hyponatremia as well, anemia. She stabilized. I do not think she subsequently had any more hypotension. Her white count was still high. She has had stents previously. She seemed to be doing okay. Waiting on culture results prior to discharge and she grew out Escherichia coli with negative blood cultures, resistant to ampicillin and intermediately to Unasyn, but sensitive to everything else, including Levaquin and Keflex. She will be discharged on Keflex 500 t.i.d. Her home medicines have not been resolved, but she is on Xanax, Molina, gabapentin 600 t.i.d., Xarelto 20 daily, clonidine 0.2 b.i.d., paroxetine 10 daily, oxycodone as needed, Bactrim was new, zolpidem daily. Verapamil is not listed, although it was listed on her. She will need to follow up with Dr. Allen and Dr. Reyes in 1 to [address] scan showed bilateral ureteral stents without any hydronephrosis. 32 minute discharge. cc: Delon Santos MD
== END 2019-12-22 21:02 | disposition home or self-care (01) | DRG 872 ==
LOC: ED 09:26 → 3N 14:07 → SUATTDRO 14:07
PROVIDERS: ATTEND Internal Medicine

== ENCOUNTER 2019-12-22 23:14 | Inpatient (IN) ==
[2019-12-22] MEDS ORDERED: NS 1,000 ML IV ONE (23:26)
[2019-12-23 00:25] LABS: BASO# 0.03 X1000 (0.0-0.2); BASO% 0.1 % (0.0-0.8); EOS# 0.01 X1000 (0.0-0.7); HEMATOCRIT 28.6 % (37.0-47.0); IMM GRAN# 0.25 X1000 (0.0-0.04); IMM GRAN% 0.6 % (0.0-0.5); LYMPH# 0.29 X1000 (1.2-3.4); LYMPH% 0.7 % (20.5-51.1); MCH 29.6 PG (27-31); MCHC 31.5 g/dL (33-37); MCV 94.1 FL (81-99); MONO# 1.68 X1000 (0.11-0.59); MPV 10.2 FL (7.4-10.4); NEUT# 39.65 X1000 (1.4-6.5); NEUT% 94.6 % (42.2-75.2); PLT 368 X1000 (130-400); RBC 3.04 XMIL (4.2-5.4); RDW 19.5 % (11.5-14.5); WBC 41.91 X1000 (4.8-10.8)
--- NOTE | 2019-12-23 00:39 | PROVIDER DOCUMENTATION ---
HPI-General Adult - General Chief Complaint: Altered Mental Status Stated Complaint: AMS Time Seen by Provider: 12/22/19 23:16 Source: patient, EMS Allergies/Adverse Reactions: Patient Allergies Allergy/AdvReac Type Severity Reaction Status Date / Time No Known Allergies Allergy Verified 12/23/19 00:48 Home Medications: Home Medication List Medication Instructions Recorded Confirmed Last Taken Type Clonidine [Catapres] 1 tab PO BID 02/15/15 12/23/19 10/15/19 History Verapamil HCl [Verapamil ER] 1 tab PO QAM 02/15/15 12/23/19 10/15/19 History Zolpidem [Ambien] 10 mg PO QHS PRN 06/17/18 12/23/19 10/15/19 History Alprazolam 0.5 mg PO QAM 08/13/18 12/23/19 10/15/19 History Gabapentin 600 mg PO BID 08/13/18 12/23/19 10/15/19 History Paroxetine [Paxil] 10 mg PO QAM 08/13/18 12/23/19 10/15/19 History Cyanocobalamin (Vitamin B-12) 1,000 mcg PO DAILY 07/14/19 12/23/19 10/15/19 History [Vitamin B-12] Ferrous Sulfate [Iron] 65 mg PO QAM 07/14/19 12/23/19 10/15/19 History Rivaroxaban [Xarelto] 20 mg PO QAM 07/14/19 12/23/19 10/14/19 History Ergocalciferol (Vitamin D2) 50,000 units PO DIRECTED 08/24/19 12/23/19 10/15/19 History [Vitamin D2] Iron Carbonyl/Ascorbic Acid 1 ea PO BID #120 tab 08/29/19 12/23/19 10/15/19 Rx [Icar-C] Multivitamins/Minerals [Centrum 1 ea PO QAM 10/14/19 12/23/19 10/15/19 History Silver] Oxycodone I.r. [Oxy Ir] 5 mg PO Q6H PRN PRN #10 cap 10/16/19 12/23/19 Unknown Rx Sulfamethoxazole/Trimethoprim 1 ea PO BID #6 tab 10/16/19 12/23/19 Unknown Rx [Bactrim Ds Tablet] Cephalexin [Keflex] 500 mg PO TID #21 cap 12/22/19 12/23/19 Unknown Rx - History of Present Illness -Gen Adult Nature of Presenting Problems: 54 y/o BF returns to hospital by EMS with complaint of generalized confusion/lethargy and was released from hospital tonight. Pt has recently been admitted for UTI and severe sepsis and was discharged with keflex. Pt also has hx of cervical cancer. On arrival to the ER she is alert to person and place, not time. Location of Pain/Injury: reports: none Pain Radiation: reports: no radiation Quality of Pain: reports: none Severity: reports: mild Onset/Duration: reports: unsure, gradual Timing: reports: still present Context/Activities at Onset: reports: light activity Modifying Factors: improves with: nothing Associated Symptoms: reports: malaise, weakness Similar Symptoms Previously?: Yes Recently seen or treated by another doctor?: Yes (was recently admitted here for UTI and sepsis) - Sickle Cell Pain Related Context Sickle Cell Pain Location: reports: none Review of Systems - Adult - REVIEW OF SYSTEMS - ADULT Constitutional: reports: no symptoms reported, see HPI Eyes: reports: no symptoms reported, see HPI Ears, Nose, Mouth & Throat: reports: no symptoms reported, see HPI Cardiovascular: reports: no symptoms reported, see HPI Respiratory: reports: no symptoms reported, see HPI Gastrointestinal: reports: no symptoms reported, see HPI Genitourinary: reports: see HPI, dysuria Musculoskeletal: reports: no symptoms reported, see HPI Integumentary: reports: no symptoms reported, see HPI Neurological: reports: see HPI Psychiatric: reports: no symptoms reported, see HPI Endocrine: reports: no symptoms reported, see HPI Hematologic/Lymphatic: reports: no symptoms reported, see HPI Allergic/Immunologic: reports: no symptoms reported, see HPI All Other Systems: Reviewed and Negative Past History - Adult - PAST MEDICAL HISTORY-ADULT Review of Records: reports: Nursing Assessment Review, Medications Reviewed, Social history reviewed & non-contributory. Major Childhood Illnesses: reports: denies history Cardiovascular: reports: HTN, hyperlipidemia Respiratory: reports: denies history Gastrointestinal: reports: denies history Obstetrical/Gynecological: reports: other (cervical cancer) Genitourinary: reports: other (kidney stent) Musculoskeletal: reports: neck/back injury, other (muscle spasms) Neurological: reports: denies history Psychiatric: reports: anxiety Endocrine/Immune: reports: denies history Other Conditions: reports: denies history - PRIOR SURGERIES/PROCEDURES Surgical/Procedure History: reports: other (port placement) - IMMUNIZATION STATUS Childhood Immunizations: See Nurse Assessment Flu Vaccine: See Nurse Assessment - FAMILY HISTORY Family History: reviewed, not pertinent Physical Exam-General - PHYSICAL EXAM-ADULT Initial Vital Signs Reviewed: Yes - CONSTITUTIONAL General Appearance: mild distress, lethargic, slow to respond - EYES Eyes: PERRL/EOMI - HEAD, EARS, NOSE, MOUTH & THROAT HENMT: normocephalic/atraumatic, moist mucous membranes, normal ENT inspection - NECK Neck: non-tender, full range of motion, supple, normal inspection - RESPIRATORY Respiratory: chest non-tender, lungs clear, normal breath sounds, no pleuratic chest pain, no respiratory distress, no accessory muscle use - CARDIOVASCULAR Cardiovascular: normal peripheral pulses, no edema, no gallop, no JVD, no murmur , tachycardia - GASTROINTESTINAL (ABDOMEN) Abdominal Exam: normal bowel sounds, non tender, soft, no organomegaly, no pulsatile mass - LYMPHATIC Lymphatic: no adenopathy - MUSCULOSKELETAL Back Exam: normal inspection, no CVA tenderness, no vertebral tenderness Extremity: normal range of motion, non-tender, normal gait, normal inspection, no pedal edema, no calf tenderness, normal capillary refill - SKIN Integumentary: normal color, decubitus - NEUROLOGIC Neurologic: program manufacturing leader II-XII nml as tested, grossly normal, no motor/sensory deficits Progress - PLAN OF CARE/RESULTS Progress/Plan/Lab Results: Vital Signs - 8 hr 12/22/19 23:21 Temperature 97.5 F L Pulse Rate 143 H Respiratory Rate 20 Blood Pressure 114/86 O2 Sat by Pulse Oximetry 100 Laboratory Results - last 24 hr 12/22/19 23:45 WBC 41.91 H RBC 3.04 L Hgb 9.0 L Hct 28.6 L MCV 94.1 MCH 29.6 MCHC 31.5 L RDW Std Deviation 19.5 H Plt Count 368 MPV 10.2 Immature Gran % (Auto) 0.6 H Neut % (Auto) 94.6 H Lymph % (Auto) 0.7 L Canyon % (Auto) 4.0 Eos % (Auto) 0.0 Baso % (Auto) 0.1 Immature Gran # (Auto) 0.25 H Neut # (Auto) 39.65 H Lymph # (Auto) 0.29 L Canyon # (Auto) 1.68 H Eos # (Auto) 0.01 Baso # (Auto) 0.03 Orders Category Date Time Status Banks Cath Insertion ORDERED Care 12/22/19 23:58 Active NEWS Score 2-4:Order NEWS Lactate Series NOW Care 12/22/19 23:24 Active Nursing- Obtain EKG ONCE Care 12/22/19 23:26 Active CBC WITH ELECTRONIC DIFF [HEME] Stat Lab 12/22/19 23:45 Results COMPREHENSIVE METABOLIC PANEL [CHEM] Stat Lab 12/22/19 23:45 Received LACTATE, PLASMA [CHEM] Lab 12/23/19 02:30 Uncollected LACTATE, PLASMA [CHEM] Lab 12/23/19 05:30 Uncollected LACTATE, PLASMA [CHEM] Q3H Lab 12/22/19 23:30 Ordered TROPONIN T HIGH SENSITIVITY Stat Lab 12/22/19 23:45 Received URINALYSIS W/POSS RFLX CULT [URINALYSIS] Stat Lab 12/22/19 23:26 Uncollected 0.9% Sodium Chloride Inj [Ns] 1,000 ml Med 12/22/19 23:26 Discontinued IV 999 mls/hr EKG [EKG] Stat Ther 12/22/19 23:26 Ordered Result Diagrams: 12/22/19 23:45 12/22/19 23:45 Departure - Departure Date of Disposition Decision: 12/23/19 Time of Disposition Decision: 01:33 DIAGNOSIS: Metastasis from cervical cancer, Altered mental status, UTI (urinary tract infection), Renal insufficiency, Elevated troponin, Leukocytosis Disposition: ADMITTED INPATIENT 09 Certified Medical Emergency: Emergent Condition: Fair Referrals and Follow-Ups: UNKNOWN, [Primary Care Provider] - - Critical Care Note This patient required my direct & personal management of CC.: No Attestation - Physician/ GEORGE Attestation Patient care was provided by Advanced Practice Provider:: No The physician spent face to face time with patient:: Yes Advanced Practice Provider documentation review:: Supervising physician onsite and consulted in the evaluation and care of this patient. The physician did have a face to face encounter with the patient.
[2019-12-23 00:43] LABS: ALB/GLOB RATIO 0.6; ALBUMIN 2.6 g/dL (3.5-5.0); CALCIUM 8.5 mg/dL (8.8-10.2); CREATININE 2.5 mg/dL (0.5-0.9); POTASSIUM 4.5 mmol/L (3.5-5.1); TOTAL BILIRUBIN 0.28 mg/dL (0.20-1.00); TOTAL PROTEIN 6.6 g/dL (6.3-8.3)
[2019-12-23] MEDS ORDERED: LEVAQUIN 500 MG/D5W 500 MG/100 ML IVPB IV ONE (00:48)
[2019-12-23 01:41] LABS: BANDS 1 % (0-1); LYMPHS 1 % (21-51); MONO 3 % (1-9); SEGS 95 % (42-75)
[2019-12-23 01:42] LABS: ANISOCYTOSIS 2+; HYPOCHROM 2+
--- NOTE | 2019-12-23 03:42 | EKG Report ---
Test Performed on : 12/22/2019 11:50:27 PM Test Reason : tachycardia Blood Pressure : / mmHG Vent. Rate : 135 BPM Atrial Rate : 135 BPM P-R Int : 138 ms QRS Dur : 068 ms QT Int : 360 ms P-R-T Axes : 089 -17 037 degrees QTc Int : 540 ms Sinus tachycardia. Nonspecific ST and T wave abnormality Abnormal ECG When compared with ECG of 20-DEC-2019 10:48, (Unconfirmed) Nonspecific T wave abnormality now evident in Lateral leads Unconfirmed Result
[2019-12-23] MEDS ORDERED: ZOFRAN IV PRN (03:44)
[2019-12-23] MEDS ORDERED: TYLENOL PO PRN (03:44)
[2019-12-23] MEDS ORDERED: OXY IR PO PRN (03:44)
[2019-12-23] MEDS: LEVAQUIN 500 MG/D5W 500 MG/100 ML IVPB IV SCH (05:09)
[2019-12-23] MEDS: NS 1,000 ML IV SCH ×2 (05:09→16:49)
--- NOTE | 2019-12-23 06:10 | Diag Imaging Result Doc PS360 ---
EXAM: CHEST-1 VIEW HISTORY: leukocytosis TECHNIQUE: Single view COMPARISON: 12/20/2019 FINDINGS: Poor inspiratory effort. No change in the right jugular portacatheter. The heart is not enlarged. The vessels are not distended. There are no infiltrates. No effusion identified. IMPRESSION: No pneumonia Electronically signed by Reynold Carpenter 12/23/2019 6:08 AM
--- NOTE | 2019-12-23 06:22 | HISTORY AND PHYSICAL ---
PRIMARY CARE PROVIDER: Dr. Foster. CHIEF COMPLAINT: Weakness, confusion. HISTORY OF PRESENTING ILLNESS: A 54-year-old female with a history of metastatic cervical cancer, sacral decubitus, chronic kidney disease stage 3, and radiation cystitis who was just discharged from the hospital earlier yesterday after treatment for urinary tract infection and sepsis. She was sent home on antibiotics. However, she states that when she got home he was feeling weak and at times she was getting confused and forgetful. She returned back to the emergency department and she was evaluated. At the time of my examination, she was alert and oriented x3. She states that she just feels weak and thinks that she may have been discharged too early. The patient had laboratories drawn in the ED which did show her leukocytosis had worsened and, due to her presenting symptoms, it was thought that we will place her for observation for further evaluation and management. At the time of my examination, she denied any headache, fever, chills, chest pain, shortness of breath or any weight changes, but just stated that she feels weak. PAST MEDICAL HISTORY: Metastatic cervical cancer, sacral decubitus, chronic kidney disease stage 3, radiation cystitis, vesicovaginal fistula, right lower extremity deep venous thrombosis. PAST SURGICAL HISTORY: Bilateral ureteral stent, Port-A-Cath. ALLERGIES: No known drug allergies. CURRENT MEDICATIONS: Alprazolam 0.5 mg p.o. q.a.m., Keflex 500 mg p.o. t.i.d., clonidine 0.2 mg 1 p.o. b.i.d., ferrous sulfate 65 mg p.o. q.a.m., gabapentin 600 mg p.o. b.i.d., oxycodone 5 mg p.o. q.6 hours, Paxil 10 mg p.o. q.a.m., Xarelto 20 mg p.o. q.a.m., Bactrim DS 1 p.o. b.i.d., verapamil 240 mg p.o. q.a.m., Ambien 10 mg p.o. at bedtime. SOCIAL HISTORY: She has 40+ pack/years history of smoking. She denies any history of alcohol or illicit drug use. FAMILY HISTORY: No history of coronary disease. REVIEW OF SYSTEMS: Fourteen point review of systems is as in HPI. Other systems negative physical. EXAMINATION: General: Cooperative, friendly female. She is resting more comfortably now. Vital Signs: Temperature 97.5 degrees, pulse 142, respirations 20, blood pressure 114/86. HEENT: Atraumatic, normocephalic. Extraocular movements intact PERRLA. Neck: No masses. Chest: Clear to auscultation. Cardiovascular: Regular rate and rhythm. Abdomen: Soft. Positive bowel sounds. Extremities: +1 edema. Neurologic: She is awake, alert, oriented x3. : No bladder distention. Skin: Warm. LABORATORIES AND STUDIES: WBCs 41.91, hemoglobin 9.1, hematocrit 28.6, platelets 368,000. Sodium 135, potassium 4.5, chloride 104, CO2 is 13, BUN is 36, creatinine is 2.5, glucose is 96. ASSESSMENT: A 54-year-old female with a history of metastatic cervical cancer, sacral decubitus, chronic kidney disease, and radiation cystitis who had presented to emergency department after which she was discharged earlier after treatment for sepsis and UTI. The patient stated that she was getting more weak and confused and subsequently was concerned and returned to the emergency department. In the ED, she was evaluated and, due to her presenting symptoms, we will place her for observation for further evaluation and management. 1. Altered mental status, currently resolved. 2. Generalized weakness. 3. Recent treatment for sepsis and urinary tract infection. 4. Chronic kidney disease stage 3. 5. Sacral decubitus. PLAN: 1. We will admit patient to medical floor with telemetry. 2. We will continue with neuro checks. 3. Continue with gentle hydration. 4. Continue patient on IV antibiotics. Check urine cultures and blood cultures. 5. Monitor renal function. 6. We will do wound care for decubitus. 7. The patient is on Xarelto and this will suffice for deep venous thrombosis prophylaxis. 8. We will continue to follow, reassess and make further recommendation based on patient's clinical course. cc: Anastacio Munoz MD
[2019-12-23 07:35] LABS: URINE SOURCE CLEAN CATCH
[2019-12-23 07:39] LABS: BILIRUBIN URINE NEGATIVE (NEGATIVE); BLOOD URINE MODERATE (NEGATIVE); COLOR YELLOW; GLUCOSE URINE NEGATIVE (NEGATIVE); KETONE URINE NEGATIVE (NEGATIVE); LEUKOCYTES URINE LARGE (NEGATIVE); NITRITE URINE NEGATIVE (NEGATIVE); PH URINE 6.5; PROTEIN URINE 100 mg/dL (NEGATIVE); SP GRAVITY URINE 1.011; TURBIDITY URINE HAZY (CLEAR); UROBILINOGEN URINE NORMAL (NORMAL)
[2019-12-23 07:41] LABS: UR EPITHELIAL CELLS <10 /HPF (<10); URINE BACTERIA NEGATIVE /HPF; URINE WBC <10 /HPF (<10)
[2019-12-23] MEDS: PAXIL PO SCH (08:42)
[2019-12-23] MEDS: XARELTO PO SCH (08:42)
[2019-12-23] MEDS: FERROUS SULFATE PO SCH (08:42)
[2019-12-23] MEDS: ISOPTIN SR PO SCH (08:42)
[2019-12-23] MEDS: ICAR-C PO SCH ×2 (08:43→21:36)
[2019-12-23] MEDS: CENTRUM SILVER PO SCH (08:43)
[2019-12-23] MEDS: CATAPRES PO SCH ×2 (08:43→21:36)
[2019-12-23] MEDS: VITAMIN B-12 PO SCH (08:43)
[2019-12-23] MEDS ORDERED: NEURONTIN PO SCH (09:00)
[2019-12-23] MEDS ORDERED: XANAX PO SCH (09:00)
[2019-12-23 17:35] LABS: ALLEN TEST YES; BE -12.3 mmoll (-3.0-3.0); BLOOD TYPE ARTERIAL; HCO3-(ACT) 15.3 mmoll (20.0-26.0); METHB 1.1 % (0.0-1.5); MODALITY ROOM AIR; O2(CT) 11.8 mL/dL (15.0-23.0); O2HB 95.7 % (95.0-99.0); PCO2(98.6) 25 mmHg (35-45); PO2(98.6) 85 mmHg (60-100); SAMPLE BLOOD; SAO2 98.4 % (95.0-100.0); THB 8.7 g/dL (11.5-17.4); pH(98.6) 7.31 (7.35-7.45)
[2019-12-23] MEDS ORDERED: SODIUM BICARBONATE 8.4% 150 MEQ in D5W 1,000 ML IV SCH (18:00)
--- NOTE | 2019-12-23 18:43 | PROGRESS NOTE ---
DATE: 12/23/2019 INTERVAL HISTORY: No acute events overnight. Ms. Laura Sanz was admitted for confusion and weakness and she has been tachycardic since presentation. SUBJECTIVE: Ms. Sanz appears confused and disinterested. Her movements are quite slow. She is trying to eat but she is very slow to respond. She is awake and alert. She answers some questions appropriately. She could not tell me the reason why she was admitted in the hospital currently. VITAL SIGNS: She has been afebrile since hospital admission. Temperature is 98.3 degrees, pulse 115, respiratory rate 16, blood pressure 139/79. She is saturating 100% on room air. PHYSICAL EXAMINATION: She does not appear in acute distress. Oral cavity has food particles.Lungs: Air entry bilaterally equal. No wheeze, rhonchi, crackles. Heart: S1, S2 normal. Tachycardic. No murmur or gallop. Abdomen: Soft, nontender. Extremities: She does not have any lower extremity edema. Chest: She has a right-sided chest port. Neurological: She is drowsy but is easily. She is awake and alert. She is oriented to herself. She could not tell me where she lives initially. Later on, she could tell me that she lives in [place]. LABS: Suggestive of WBC of 41,000 with marked neutrophilia and 0% eosinophil count. She has metabolic acidosis with increased anion gap. She is tachypneic because of that. She does have hyponatremia, low bicarbonate, elevated and anion gap, acute kidney injury on chronic kidney disease. Her troponin was elevated. She does not have lactic acidosis. She has pyuria. Blood culture and urine culture are in lab. ASSESSMENT AND PLAN: 1. Acute encephalopathy of unclear etiology. I will follow up with ammonia, head CT, vitamin B12, RPR. I will stop her gabapentin, alprazolam, and oxycodone. She did not comply with neurological examination though she does not have any obvious facial droop. She is able to move both upper and lower extremities though appears quite weak and slow to respond and did not comply with neurological examination completely. 2. Increased anion gap metabolic acidosis. This could be in the setting of acute kidney injury. I will start her on D5 containing intravenous bicarbonate fluids and follow up with BMP tomorrow. 3. Unexplained leukocytosis. The patient has had remarkable leukocytosis since recent admission. I will consult Oncology tomorrow for further evaluation. The patient has been on chemotherapy for metastatic cervical cancer, and I am not sure if she has been receiving any colony- stimulating factors. The patient was not able to provide history. 4. Acute kidney injury on chronic kidney disease stage IIIB, likely because of intravascular volume depletion due to poor oral intake. Continue intravenous fluids. 5. Sacral decubitus ulcer. Treatment as per wound care nurse. 6. Recent history of severe sepsis due to Escherichia coli urinary tract infection. Continue intravenous levofloxacin. Repeat urine cultures are pending. 7. History of right lower extremity deep venous thrombosis. Continue Xarelto. She is also on diltiazem for essential hypertension, which I will continue. DISPOSITION: Continue to monitor patient in the telemetry unit. I had a detailed discussion about plan of care with the patient's nurse and as well as the patient. In future I will consider physical therapy evaluation. cc: Abdoul Walton MD
--- NOTE | 2019-12-23 19:37 | Diag Imaging Result Doc PS360 ---
EXAM: CT HEAD W/O CONTRAST INDICATION: encephalopathy TECHNIQUE: This exam was performed using automated exposure control, adjustment of mA or kV according to patient size, and/or use of iterative reconstruction technique. COMPARISON: 08/23/2019 FINDINGS: There is evidence of mild periventricular and subcortical white matter microangiopathy, stable. There is no definite acute infarct given the limited sensitivity of CT versus MRI. There is no discrete intracranial mass, mass effect, or intracranial hemorrhage. The surrounding soft tissues and bony structures are essentially unremarkable. IMPRESSION: Mild chronic appearing white matter changes but no evidence of acute intracranial pathology by CT. Electronically signed by Tenzin Francois 12/23/2019 7:34 PM
[2019-12-24] MEDS: LEVAQUIN 500 MG/D5W 500 MG/100 ML IVPB IV SCH (05:00)
[2019-12-24 06:29] LABS: BASO# 0.01 X1000 (0.0-0.2); EOS# 0.02 X1000 (0.0-0.7); EOS% 0.1 % (0.0-10.0); HEMATOCRIT 23.1 % (37.0-47.0); HEMOGLOBIN 6.9 g/dL (12.0-16.0); IMM GRAN# 0.13 X1000 (0.0-0.04); IMM GRAN% 0.5 % (0.0-0.5); LYMPH# 0.58 X1000 (1.2-3.4); LYMPH% 2.3 % (20.5-51.1); MCH 27.7 PG (27-31); MCHC 29.9 g/dL (33-37); MCV 92.8 FL (81-99); MONO# 0.88 X1000 (0.11-0.59); MONO% 3.5 % (1.7-9.3); MPV 9.8 FL (7.4-10.4); NEUT# 23.37 X1000 (1.4-6.5); NEUT% 93.6 % (42.2-75.2); PLT 250 X1000 (130-400); RBC 2.49 XMIL (4.2-5.4); RDW 19.6 % (11.5-14.5); WBC 24.99 X1000 (4.8-10.8)
[2019-12-24 06:53] LABS: CREATININE 2.2 mg/dL (0.5-0.9); POTASSIUM 3.7 mmol/L (3.5-5.1)
[2019-12-24] MEDS: XARELTO PO SCH ×2 (07:55→08:18)
[2019-12-24] MEDS: ISOPTIN SR PO SCH ×2 (07:55→08:19)
[2019-12-24] MEDS: CENTRUM SILVER PO SCH ×2 (07:56→08:19)
[2019-12-24] MEDS: CATAPRES PO SCH ×4 (07:56→21:43)
[2019-12-24] MEDS: PAXIL PO SCH ×2 (07:56→08:19)
[2019-12-24] MEDS: VITAMIN B-12 PO SCH ×2 (07:56→08:18)
[2019-12-24] MEDS: ICAR-C PO SCH ×3 (07:56→21:43)
[2019-12-24] MEDS: FERROUS SULFATE PO SCH ×2 (07:56→08:19)
[2019-12-24] MEDS: VITAMIN D PO SCH (10:20)
[2019-12-24] MEDS ORDERED: NS 500 ML IV ONE (14:00)
--- NOTE | 2019-12-24 14:37 | HEMO/ONC CONSULTATION ---
DATE: 12/24/2019 CONSULTATION REQUESTED BY: Hospitalist Service. HISTORY OF PRESENT ILLNESS: Ms. Laura Sanz is a 54-year-old female, who is known to us as we are currently treating her for metastatic recurrent cervical cancer. The patient presented to the emergency department at [facility] yesterday complaining of weakness and altered mental status. She was actually recently discharged after being admitted for urosepsis. Due to her ongoing issues, she was readmitted to the medical floor, and we have been consulted to help with management of the patient while she is here at the hospital. Her last office visit with us was on 11/28/2019. At that time, we reviewed her most recent PET scan which was done on 11/21/2019, which showed new liver disease. It was decided at that time that we would try to proceed with further palliative treatment with Navelbine. She was scheduled to receive her first treatment on 12/05/2019, but did not come to the appointment due to weakness and illness. She was then scheduled to follow back up with us on 12/12/2019, but was unable to come to that appointment due to illness. Therefore, her last treatment was with Gemzar on 11/04/2019. The patient is in now and is rather weak. She seems a little clearer than what is depicted in the H and P from yesterday. She has no acute complaints currently. PAST MEDICAL HISTORY: Positive for hypertension, insomnia, right lower extremity DVT, radiation cystitis, and metastatic recurrent cervical cancer, and she has received multiple lines of therapy. Please see HPI for most recent treatment history. SURGICAL HISTORY: 1. Ankle fracture repair back in 2014. 2. Tubal ligation in 1991. 3. Port-A-Cath placement. 4. Bilateral ureteral stent placement. SOCIAL HISTORY: The patient has a 40+ pack-year history. She denies any alcohol or illicit drug use. She currently lives with her son and his girlfriend. FAMILY HISTORY: Positive for heart disease and hypertension, as well as diabetes. She also has a family history of prostate cancer and lymphoma. REVIEW OF SYSTEMS: Twelve point review of systems has been completed as negative, except for expressed in HPI. PHYSICAL EXAMINATION: Vital Signs: Temperature 97.7 degrees, heart rate 113, respirations 16, blood pressure 105/71, O2 saturation 100% on room air. General: This is a thin chronically ill- appearing, weak female, who is lying in her hospital bed. She is in no acute distress. Eyes: Sclerae anicteric. Mouth: Oral mucosa appears to be normal. Cardiovascular: Tachycardia noted. Respiratory: Normal respiratory effort. Gastrointestinal: Abdomen is nondistended. Musculoskeletal: She has muscle wasting noted. Extremities: She does have trace bilateral pretibial edema. Neurologic: Patient is alert. She seems to be oriented. LABS AND STUDIES: White blood cells today are 24.99, down from 41.91 a couple days ago, hemoglobin 6.9, platelet count is 250. Sodium 138, potassium 3.7, chloride 108, CO2 16. BUN 32, creatinine 2.2, glucose 100. ASSESSMENT AND PLAN: 1. Metastatic recurrent cervical cancer. She has advanced disease and has had several lines of therapy. She has been too ill to get her most recent chemotherapy. She recently had progression on scans and was scheduled to start new treatment at the beginning of December. Her last treatment was Gemzar back on 11/04/2019. I discussed with the patient her goals of care. We briefly discussed hospice, and the patient is open for further discussion. We placed a Palliative Care consult, and we will continue to follow along with the patient. No treatment is planned during this hospitalization, and she seems too weak to get any treatment thus far as an outpatient. 2. Anemia, ongoing issue. She does have vaginal bleeding, as well as ongoing radiation cystitis and likely just has continuous blood loss. She also could be experiencing an acute drop in her hemoglobin due to correction of hemoconcentration. We will go ahead and proceed with a blood transfusion and transfuse 1 unit of packed red blood cells at this time. 3. Altered mental status. Definitely improved. She had a head CT which was negative. We will continue to follow along. 4. Sepsis and urinary tract infection. Continue current management per the primary team. 5. Chronic kidney disease, stage III. Continue current management. Monitor throughout the hospitalization. 6. Sacral decubitus. Wound Care is seeing the patient and managing her wound. 7. Disposition: Again, we are discussing hospice with this patient. No final decision has been made. Follow up on Palliative Care Nurses evaluation. Thank you for consulting us on Ms. Sanz. We will continue to follow along and adjust our treatment plan per her hospital course. Dictated by RENARD Levi for Marily Allen MD cc: Marily Allen MD I have seen and examined the patient and the above note reflects my history, physical, assessment, and plan. Marily CLAIRE
--- NOTE | 2019-12-24 15:30 | PROGRESS NOTE ---
DATE: 12/24/2019 INTERVAL HISTORY: No acute events overnight. Ms. Sanz's vitals were unremarkable. She remained tachycardic. Her leukocytosis was improving. She did have a drop in her hemoglobin for which she is receiving 1 unit of transfusion. She has not had any bowel movement. SUBJECTIVE: Ms. Sanz is feeling better but she appears confused. She initially told me that she came to the hospital because she was having a stomachache. However, she states that she has been feeling confused. She could not tell me the discussion she had with the oncologist. REVIEW OF SYSTEMS: Negative for chest pain. Negative for shortness of breath. Negative for cough. Negative for nausea, vomiting, or abdominal pain. VITALS: Temperature 97.9 degrees, pulse 107, respiratory rate 16, blood pressure 118/70, saturating 100% on room air. PHYSICAL EXAMINATION: Not in acute distress. Oral cavity is moist. Lungs: Air entry bilaterally equal. No wheeze, rhonchi, or crackles. Cardiovascular: S1, S2 normal. Tachycardic. No murmur, rub, or gallop. Abdomen: Soft, nontender. She does not have any lower extremity edema except mild. She has a right-sided chest port. She is alert, awake. She could tell me her name and date. She is not entirely oriented with the situation. LABS: Suggestive of WBCs 24,000, hemoglobin 6.9, platelets 250,000. Chloride 108, BUN 32, creatinine 2.2. MICROBIOLOGY: No positive data so far. IMAGING: No new imaging except head CT yesterday which had mild chronic-appearing white matter changes without evidence of acute intracranial pathology. ASSESSMENT AND PLAN: 1. Acute encephalopathy. Her ammonia, head CT, vitamin B12, rapid plasma reagin, and RPR test were negative. Continue to hold gabapentin, alprazolam, and oxycodone. However, it has not helped improve her encephalopathy. She is able to raise both upper and lower extremities above ground level the time of evaluation and has intact bilateral upper and lower extremity sensation. I will continue to redirect, reorient, and reassure, and address underlying metabolic issues. 2. Increased anion gap metabolic acidosis, likely in the setting of acute kidney injury. Continue intravenous bicarbonate fluid resuscitation. Her acute kidney injury and bicarbonate levels have been improving. 3. Leukocytosis, likely in the setting of metastatic nature of her cervical cancer and urinary tract infection. I will continue to get serial CBCs. 4. Acute kidney injury on chronic kidney disease stage 3B due to intravascular volume depletion, now improving. Continue intravenous fluids. 5. Recent history of severe sepsis with Escherichia coli urinary tract infection. Continue intravenous levofloxacin. Repeat urine cultures are unremarkable. I will treat her with a 7 to 10 day course. 6. Sacral decubitus ulcer. Treatment as per wound care. 7. History of right lower extremity deep venous thrombosis. Continue Xarelto; diltiazem for essential hypertension. 8. History of metastatic recurrent cervical cancer with liver metastasis. Her last treatment was with Gemzar on November 03 and she was not able to follow up after that due to recurrent hospitalization. I appreciate oncology team's recommendation, who had recommended palliative care at the moment. 9. Disposition. I will continue to monitor the patient inside the hospital. I will consult physical therapy. Continue intravenous fluid and diet. I will add MiraLAX for constipation and we will await further discussion of palliative care team with the family. Plan of care discussed with Ms. Sanz. Her questions have been answered. cc: Abdoul Walton MD
[2019-12-24] MEDS: MIRALAX PO SCH ×2 (15:35→21:43)
[2019-12-24] MEDS: SODIUM BICARBONATE 8.4% 150 MEQ in D5W 1,000 ML IV SCH ×2 (15:35→17:31)
[2019-12-25] MEDS: LEVAQUIN 500 MG/D5W 500 MG/100 ML IVPB IV SCH (04:23)
[2019-12-25 07:24] LABS: CALCIUM 8.3 mg/dL (8.8-10.2); CREATININE 2.2 mg/dL (0.5-0.9); POTASSIUM 3.7 mmol/L (3.5-5.1)
[2019-12-25] MEDS: CENTRUM SILVER PO SCH (08:50)
[2019-12-25] MEDS: PAXIL PO SCH (08:50)
[2019-12-25] MEDS: CATAPRES PO SCH ×3 (08:50→22:36)
[2019-12-25] MEDS: MIRALAX PO SCH ×3 (08:50→22:37)
[2019-12-25] MEDS: ICAR-C PO SCH ×2 (08:50→22:36)
[2019-12-25] MEDS: XARELTO PO SCH (08:50)
[2019-12-25] MEDS: VITAMIN D PO SCH (08:50)
[2019-12-25] MEDS: ISOPTIN SR PO SCH (08:50)
[2019-12-25] MEDS: FERROUS SULFATE PO SCH (08:50)
[2019-12-25] MEDS: VITAMIN B-12 PO SCH (08:52)
[2019-12-25] MEDS: SODIUM BICARBONATE 8.4% 150 MEQ in D5W 1,000 ML IV SCH (10:57)
--- NOTE | 2019-12-25 12:43 | HEMO/ONC PROGRESS NOTE ---
DATE: 12/25/2019 SUBJECTIVE: Ms. Sanz is sitting in her hospital bed. She is in no acute distress. OBJECTIVE: Vital Signs: Temperature 98.4 degrees, heart rate 100, respirations 18, blood pressure 127/76, O2 saturation 100% on room air. Labs: There were no new labs for today. ASSESSMENT AND PLAN: 1. Metastatic recurrent cervical cancer. The patient met with palliative care and per the last palliative care note, the plan is to discharge home with hospice. There is another note that says that [facility] is talking with the patient's son. The patient does not know anything about her discharge timeframe. We support the patient going home on hospice. We will wait to make sure there is a final decision in place. 2. Weakness, sepsis, urinary tract infection. Management per the primary team. 3. Decubitus ulcer. Wound care is managing this. 4. Altered mental status. Patient seems to be closer to her baseline. Dictated by RENARD Levi for Marliy Allen MD cc: Marily Allen MD I have seen and examined the patient and the above note reflects my history, physical exam, assessment and plan. Marily CLAIRE
--- NOTE | 2019-12-25 14:57 | PROGRESS NOTE ---
DATE: 12/25/2019 INTERVAL HISTORY: No acute events overnight. [facility] has started seeing the patient. SUBJECTIVE: Ms. Sanz denies chest pain, shortness of breath, or cough. She states she is in agreement about going home on hospice. VITALS: Temperature 98.4 degrees, pulse 100, respiratory 18, blood pressure 127/76 and saturating 100% on room air. PHYSICAL EXAMINATION: Not in acute distress.HEENT: Oral cavity is moist. Lungs: Air entry bilaterally equal. No wheeze, rhonchi, or crackles. Heart: S1 and S2 normal. No murmur or gallop. Abdomen: Soft, nontender. Extremities: Bilateral mild lower extremity edema. She has a right-sided chest port. Pupils are bilaterally equal reacting to light and appears dilated. She has a right-sided chest port. She is oriented to person and place not with the situation entirely. LABORATORY: No CBC today. BMP suggests improvement in bicarbonate. Improvement in BUN and creatinine. MICROBIOLOGY: No positive data. No new imaging. ASSESSMENT AND PLAN: 1. Acute encephalopathy. 2. Elevated anion gap metabolic acidosis. 3. Acute kidney injury on chronic kidney disease stage 3. 4. Leukocytosis in the setting of cervical cancer and suspected urinary tract infection though the culture data has been negative. 5. Recent history of E. Coli urinary tract infection. 6. Sacral decubitus ulcer. 7. History of right lower extremity DVT on home Xarelto. 8. Essential hypertension. 9. History of metastatic recurrent cervical cancer involving liver. PLAN: 1. I will stop her intravenous fluids, and start her on sodium bicarbonate. I will continue her on intravenous levofloxacin for UTI. 2. I will continue her home medications for hypertension including clonidine and verapamil. Continue iron and multivitamin for anemia. Continue paroxetine for anxiety; and MiraLAX for constipation. She is on home Xarelto. DISPOSITION: Awaiting discharge to home hospice whenever that is set up. Thank you. I appreciate Oncology's team recommendations. cc: Abdoul Walton MD
[2019-12-25] MEDS: SODIUM BICARBONATE PO SCH ×3 (19:27→22:37)
[2019-12-26] MEDS: LEVAQUIN 500 MG/D5W 500 MG/100 ML IVPB IV SCH (04:28)
[2019-12-26] MEDS: ISOPTIN SR PO SCH (08:27)
[2019-12-26] MEDS: CENTRUM SILVER PO SCH (08:27)
[2019-12-26] MEDS: VITAMIN D PO SCH (08:28)
[2019-12-26] MEDS: ICAR-C PO SCH (08:28)
[2019-12-26] MEDS: XARELTO PO SCH (08:28)
[2019-12-26] MEDS: VITAMIN B-12 PO SCH (08:28)
[2019-12-26] MEDS: SODIUM BICARBONATE PO SCH (08:28)
[2019-12-26] MEDS: MIRALAX PO SCH (08:28)
[2019-12-26] MEDS: PAXIL PO SCH (08:28)
[2019-12-26] MEDS: CATAPRES PO SCH (08:29)
[2019-12-26 11:31] VITALS: BP 105/58
--- NOTE | 2019-12-29 03:58 | DISCHARGE SUMMARY ---
ADMISSION DATE: 12/23/2019 DISCHARGE DATE: 12/26/2019 DISCHARGE DISPOSITION: Home with hospice. DISCHARGE CONDITION: Hemodynamically stable. Ms. Sanz still has intermittent confusion. She appears very weak. I called her son, Mr. Prateek Sanz and discussed with him about Ms. Sanz's clinical condition. Unfortunately, with the metastatic nature of her cancer and physical deconditioning, I had a discussion with him about plan regarding home with hospice. He understood it and he agrees to it. DISCHARGE DIAGNOSES: 1. Acute encephalopathy due to general physical deconditioning as well as metabolic abnormalities. 2. Elevated anion gap metabolic acidosis due to acute kidney injury. 3. Acute kidney injury on chronic kidney disease stage 3 due to clinical volume intravascular depletion. 4. Leukocytosis in the setting of cervical cancer and suspected urinary tract infection. 5. Recent history of Escherichia coli urinary tract infection. 6. Sacral decubitus ulcer. 7. History of right lower extremity deep venous thrombosis, on home Xarelto. 8. Essential hypertension. 9. History of metastatic recurrent cervical cancer involving the liver. DISCHARGE MEDICATIONS: 1. Alprazolam 0.5 mg in the morning time. 2. Clonidine 0.2 mg b.i.d., the dose of which should be decreased based on her response. 3. Multivitamin 1 tablet in the morning time. 4. Ferrous sulfate 65 mg in the morning time. 5. Paroxetine 10 mg in the morning time. 6. Verapamil 240 mg in the morning time. 7. Vitamin B12, 1000 mcg daily. 8. Ergocalciferol 50,000 units every week. 9. Xarelto 20 mg in the morning time. 10. Iron carbonyl ascorbic acid 1 tablet b.i.d. 11. MiraLAX 17 gm b.i.d. 12. Oxycodone immediate release 5 mg every 6 hours as needed for pain. 13. Sodium bicarbonate 650 mg p.o. b.i.d.. VITALS: At the time of discharge temperature 98.3 degrees, pulse 73, respiratory 18, blood pressure 105/58, saturating 99% on room air. PHYSICAL EXAMINATION: At the time of her discharge Ms. Sanz does not appear in any acute distress. Oral cavity is dry. Lungs: Air entry bilaterally equal. No wheeze, rhonchi, or crackles. Cardiovascular: S1, S2 normal. No murmur, rub, or gallop. Abdomen: Soft, nontender. Extremities: She has mild bilateral lower extremity edema. Musculoskeletal: She has a right- sided chest port. [employer]: Pupils are bilaterally equal reacting to light. She is alert. She is oriented to herself and the place, not entirely with the situation. She is able to raise both upper and lower extremities above ground level but appears extremely weak and her responses are slow. LABS AT THE TIME OF ADMISSION AND DISCHARGE: Her WBC was 41,000, which is improving at 24,000, hemoglobin 6.9, platelet 250,000. Sodium 140, potassium 3.7, BUN is 30, creatinine 2.2. MICROBIOLOGY DURING HOSPITAL ADMISSION: Blood culture and urine culture did not have any growth. On previous admission urine culture was growing Escherichia coli. IMAGING DURING HOSPITAL ADMISSION: Head CT on presentation had mild chronic appearing white matter changes without any acute pathology. Chest x-ray did not have any pneumonia. Electrocardiogram had sinus tachycardia and nonspecific ST-T wave abnormality. HOSPITAL COURSE SUMMARY: Yvon Hope is a 54-year-old, -[place] lady who was recently admitted inside the hospital between December 19 and December 21, who came back again on December 22 with chief complaints of weakness and confusion. On arrival in the emergency room she was found to have temperature of 97.5 degrees, pulse of 143, respiratory rate of 20, blood pressure of 114/86, and she was saturating 100% on room air. Her initial lab evaluation had WBC of 41,000, acute kidney injury with creatinine of 2.5 and large leukocyte in the urine. She was diagnosed with sepsis due to UTI and was admitted for further management. Ms. Sanz was resuscitated with intravenous fluids and intravenous antibiotics. Eventually, blood culture and urine culture did not have any growth and, since she has been in and out of the hospital, so far she has completed at least 5 days of intravenous antibiotic course. Her repeat WBC count was already going down. Her oral intake, however, remains poor. Hematology-Oncology was consulted considering the patient's recurrent hospital admissions. Considering the metastatic recurrent cervical cancer despite receiving multiple lines of therapy, the patient had liver involvement and had poor functional status, so the Oncology Team had recommended hospice, so hospice team was consulted and patient decided to go home on hospice. I talked to her son and he is in agreement with the plan. 35 minutes were spent discharging this patient. cc: MD ALETHEA Chowdhury
== END 2019-12-26 15:29 | disposition hospice, home (50) | DRG 871 ==
LOC: 4N 23:14 → ED 23:14 → SUATTDRO 12-23 03:05 → OBSVTOIN 12-23 03:05
PROVIDERS: ATTEND Internal Medicine